=== PATIENT | female | born 1960 | race Caucasian/White ===

== ENCOUNTER 2019-05-22 19:11 | Emergency (ER) | payer MEDICAID, SELFPAY ==
[2019-05-22 19:18] VITALS: BP 139/82; PULSE 76; RESP 20; TEMP 37; O2SAT 97; BMI 19.3
[2019-05-22 19:20] VITALS: PULSE 78; RESP 20; O2SAT 97
--- NOTE | 2019-05-22 19:20 | PC.NURSE ---
Patient reports that today around 1500 she began to get chest pain while cleaning the house. Patient states the pain started in the center of her chest then to the left side of her chest. Patient reports that the pain comes and goes. Patient also states the pain is radiating to her left arm. Patient denies any other symptoms.
--- NOTE | 2019-05-22 19:23 | ECG_ITS ---
Measurements Intervals [place] Rate: 77 P: 62 WA: 129 QRS: 72 QRSD: 84 T: 23 QT: 372 QTc: [address] DEVIATION AND MODERATE T-WAVE ABNORMALITY, CONSIDER INFERIOR ISCHEMIA No previous ECG available for comparison Electronically Signed On 05-23-2019 10:51:17 CRUSHING FOREMAN by Carolina Carl M.D. [id number] f
--- NOTE | 2019-05-22 19:23 | XR_ITS ---
WS: [id number] Portable AP upright chest, 05/22/2019 Clinical Data: cp Comparison: PA and lateral chest, 01/15/2015. Findings: No nodules, masses or effusions are seen. The heart is normal. The pulmonary vascularity is not increased. No pneumonia or pneumothorax is seen. The patient has had right lung surgery with med iastinal clips adjacent to the right medial mediastinum. There is pleural reaction at the right lung base. The left lung is clear. No pneumonia or pneumothorax is present. There is an infusion catheter on the left entering the left internal jugular vein and ending in the superior vena cava. XR/XR chest 1V portable [id number] Impression: 1. Right thoracic surgery with scarring at the surface of the right diaphragm a nd a right pleural reaction. 2. Negative for acute cardiopulmonary disease.
--- NOTE | 2019-05-22 19:24 | ED_ITS ---
Entered by Gifty Bonilla, acting as scribe for HPI - Chest Pain General: Chief Complaint: Chest Pain Stated Complaint: CHEST PAINS Time Seen by Provider: 05/22/19 19:24 Source: patient and family Mode of arrival: wheelchair Limitations: no limitations History of Present Illness: HPI narrative: 59 yo Female presents to ED with complaint of chest pain. Pt states that this started at 1500 today when she was cleaning her house. Pt has lung cancer and lesions on her brain that she is being treated for, per her daughter. Pt's daughter states that the patient felt dizzy upon standing up. complaint: chest pain Onset (ago): hour(s) (4.5) Timing of current episode: episodic (every 5 minutes) and still present Prior episodes: Yes Onset: during exertion Pain location: substernal Pain radiation: left arm Relieving factors: nothing Exacerbating factors: nothing Associated symptoms: Reports nausea and syncope (dizziness); Deny abdominal pain, diaphoresis, dyspnea, fever(s), leg edema, palpitations or vomiting Treatment prior to arrival: aspirin (16:18) Review of Systems General: Reports: 10 or more systems reviewed and unremarkable except in HPI and below Const: Denies: fever, chills, body aches or diaphoresis Eyes: Denies: change in vision, blurry vision or blind spots ENMT: Denies: throat pain, painful swallowing, hoarseness or mouth pain Card: Reports: chest pain and syncope (dizziness); Denies: palpitations, irregular heart rhythm, edema, swelling of feet/ankles, shortness of breath on exertion or shortness of breath when lying down Resp: Denies: shortness of breath, productive cough, non-productive cough or pain on inspiration GI: Reports: nausea; Denies: abdominal pain, vomiting or vomiting blood : Denies: flank pain, difficulty urinating or painful urination Musc: Denies: neck pain, back pain, extremity pain or extremity swelling Skin/Breast: Reports: redness (to cheeks); Denies: rash or itching Neuro: Denies: headache, numbness in extremities or weakness in extremities Endo: Denies: excessive urination, excessive thirst or tired all the time PFSH ED PFSH: Statuses (acute, chronic, etc) shown below reflect problem list status as previously entered and may not be historically accurate Social History Smoking and tobacco status: former smoker Physical Exam Const: COMMON NORMALS: no apparent distress, average body habitus, oriented x3, no limitations, healthy appearing, alert and well nourished HENMT: COMMON NORMALS: normocephalic, head/scalp atraumatic, hearing grossly normal bilaterally, external ears normal, EAC's normal, TM's normal bilaterally, external nose normal, nasal mucous membranes and turbinates normal, moist oral mucous membranes, oropharynx normal, dentition normal and gingiva normal HEAD & SCALP: normocephalic and atraumatic NOSE: external nose normal and nasal mucous membranes and turbinates normal EXTERNAL EAR: Yes external ears normal EXTERNAL AUDITORY CANAL: EAC's normal TYMPANIC MEMBRANE: TM's normal bilaterally Eye: COMMON NORMALS: PERRL, EOMs intact bilaterally, conjunctivae normal, no scleral icterus, no papilledema, normal visual wood by confrontation and fundi normal bilaterally CONJUNCTIVA: Yes conjunctivae normal PUPIL: Yes PERRL DIRECT OPHTHALMOSCOPY: Yes no papilledema and Yes fundi normal bilaterally Neck/C-Spine: COMMON NORMALS: full ROM, no lymphadenopathy, supple, no meningeal signs, no JVD, thyroid normal and no carotid bruits THYROID: thyroid normal Chest: COMMONS NORMALS: inspection of chest normal and palpation of chest normal Resp: COMMON NORMALS: normal respiratory effort, no retractions, no use of accessory muscles, clear to auscultation bilaterally and percussion normal AUSCULTATION: clear to auscultation bilaterally PERCUSSION: percussion normal Cardio: COMMON NORMALS: no JVD, regular rate, regular rhythm, S1 normal heart sound, S2 normal heart sound, no gallops, no clicks, no murmurs, no rub and peripheral pulses 2+ throughout RATE: regular rate RHYTHM: regular rhythm HEART SOUNDS: S1 normal and S2 normal PERIPHERAL PULSES: pulses 2+ throughout GI: COMMON NORMALS: normal to inspection, nondistended, normoactive bowel sounds, soft to palpation, non-tender, no hepatosplenomegaly, no masses and no bruits PALPATION: Yes soft and Yes no hepatosplenomegaly : COMMON NORMALS: Yes no CVA tenderness BLADDER/KIDNEY EXAM: Yes no CVA tenderness Back/Pelvis: COMMON NORMALS: no CVA tenderness Extremity: COMMON NORMALS: normal to inspection, full ROM, normal capillary refill, no joint enlargement, no clubbing, cyanosis or edema, no calf tenderness and no pedal edema Neuro: COMMON NORMALS: oriented x3 SENSORIUM/ORIENTATION: Yes alert MENINGEAL SIGNS: Yes no meningeal signs Skin: COMMON NORMALS: no rashes or lesions noted, no wounds, skin turgor normal, no jaundice, no petechiae and no mottling GENERAL SKIN EXAM: no rashes or lesions noted and turgor normal Course Vital Signs: Vital signs: Vital Signs Temperature 98.6 F 05/22/19 19:18 Pulse Rate 78 05/22/19 19:20 Respiratory Rate 20 H 05/22/19 19:20 Blood Pressure 139/82 05/22/19 19:18 Pulse Oximetry 97 05/22/19 19:20 MDM - Chest Pain Lab Data: Labs: Lab Results 05/22/19 05/22/19 05/22/19 Range/Units 19:23 19:23 19:23 WBC 11.0 H (4.0-10.0) 10^3/ uL RBC 3.75 L (4.1-5.3) 10^6/u L Hgb 11.5 (11.5-15.3) g/dL Hct 36.1 L (37.0-47.0) % MCV 96.3 (81-99) fL MCH 30.7 (28.0-34.0) pg MCHC 31.9 (30.0-36.0) g/dL RDW 15.1 (12.1-15.1) % Plt Count 352 (130-400) 10^3/c mm MPV 8.4 (7.4-10.4) fL Neut % (Auto) 84.2 % Lymph % (Auto) 10.9 % Ballard % (Auto) 3.6 % Eos % (Auto) 0.6 % Baso % (Auto) 0.4 % Neut # (Auto) 9.2 H (1.8-7.7) 10^3/u L Lymph # (Auto) 1.2 (0.8-4.8) 10^3/u L Ballard # (Auto) 0.4 (0.2-0.9) 10^3/u L Eos # (Auto) 0.1 (0.0-0.8) 10^3/u L Baso # (Auto) 0.0 (0.0-0.1) 10^3/u L Nucleated RBC % (a uto) 0 % Nucleated RBCs # 0.0 /100WBC PT 13.80 H (10.5-13.3) SECO NDS INR 1.03 (0.8-1.2) Sodium 140 (136-145) mmol/L Potassium 4.0 (3.5-5.1) mmol/L Chloride 101 (98-107) mmol/L Carbon Dioxide 26 (22-29) mmol/L Anion Gap 17.0 (5-19) BUN 11 (8-23) mg/dL Creatinine 0.8 (0.5-0.9) mg/dL GFR Calculation 73.2 L (90-130) mL/min Glucose 110 H (74-106) mg/dL Calcium 10.3 H (8.8-10.2) mg/Dl Total Bilirubin 0.2 (0.15-1.2) mg/dL AST 17 (0-32) U/L ALT 7 (0-33) U/L Alkaline Phosphata se 97 (35-105) IU/L Troponin T Baselin e (0-10) ng/mL Total Protein 7.9 (6.6-8.7) g/dL Albumin 4.5 (3.5-5.2) g/dL Globulin 3.4 (1.3-4.6) g/dL 05/22/19 Range/Units 19:23 WBC (4.0-10.0) 10^3/ uL RBC (4.1-5.3) 10^6/u L Hgb (11.5-15.3) g/dL Hct (37.0-47.0) % MCV (81-99) fL MCH (28.0-34.0) pg MCHC (30.0-36.0) g/dL RDW (12.1-15.1) % Plt Count (130-400) 10^3/c mm MPV (7.4-10.4) fL Neut % (Auto) % Lymph % (Auto) % Ballard % (Auto) % Eos % (Auto) % Baso % (Auto) % Neut # (Auto) (1.8-7.7) 10^3/u L Lymph # (Auto) (0.8-4.8) 10^3/u L Ballard # (Auto) (0.2-0.9) 10^3/u L Eos # (Auto) (0.0-0.8) 10^3/u L Baso # (Auto) (0.0-0.1) 10^3/u L Nucleated RBC % (a uto) % Nucleated RBCs # /100WBC PT (10.5-13.3) SECO NDS INR (0.8-1.2) Sodium (136-145) mmol/L Potassium (3.5-5.1) mmol/L Chloride (98-107) mmol/L Carbon Dioxide (22-29) mmol/L Anion Gap (5-19) BUN (8-23) mg/dL Creatinine (0.5-0.9) mg/dL GFR Calculation (90-130) mL/min Glucose (74-106) mg/dL Calcium (8.8-10.2) mg/Dl Total Bilirubin (0.15-1.2) mg/dL AST (0-32) U/L ALT (0-33) U/L Alkaline Phosphata se (35-105) IU/L Troponin T Baselin e 7 (0-10) ng/mL Total Protein (6.6-8.7) g/dL Albumin (3.5-5.2) g/dL Globulin (1.3-4.6) g/dL EKG Data^: EKG 1: Attestation: I personally reviewed and interpreted this EKG as follows: EKG interpretation date: 05/22/19 EKG interpretation time: 19:24 Prior EKG tracings: available for review Ischemic changes: non-specific ST-T wave changes (EKG dated 04/17/[address] depression in lead III but no ST depression noted and aVF.) Interpretation: Normal sinus rhythm, rate 77, normal axis deviation, ST depression noted in lead III, aVF EKG 2: Attestation: I personally reviewed and interpreted this EKG as follows: EKG interpretation date: 05/22/19 EKG interpretation time: 19:58 Prior EKG tracings: available for review Interpretation: Patient complained of chest pain, EKG done at that time. EKG shows normal sinus rhythm, normal axis deviation, rate 68, no ST/T wave changes noted. ST depression noted in lead III and to a lesser extent aVF is no longer noted. Discharge Plan Discharge Prescriptions: No Action B Complex PO DAILY RF: 0 ascorbic acid (vitamin C) [Vitamin C] 1,000 mg Tablet 500 mg PO DAILY RF: 0 levetiracetam [Keppra] 500 mg Tablet 500 mg PO TID RF: 0 sertraline [Zoloft] 100 mg Tablet 100 mg PO DAILY RF: 0 aspirin 81 mg Tablet,Delayed Release (Dr/Ec) 81 mg PO QAM RF: 0 acetaminophen [Tylenol Extra Strength] 500 mg Tablet 500 mg PO TID PRN (Reason: Pain) RF: 0 levothyroxine 50 mcg Tablet 50 mcg PO DAILY RF: 0 mirtazapine 15 mg Tablet 15 mg PO BEDTIME RF: 0 Probiotic PO DAILY RF: 0 Tumeric PO DAILY RF: 0 Vitamin D3 RF: 0 melatonin PO BEDTIME RF: 0 potassium chloride PO DAILY RF: 0 Coding Level of Care Code ED Sewage Disposal Engineer for Chg Fwd Exam Problem Focused The documentation recorded by the Chad bull Carmen, accurately reflects the service I personally performed and the decisions made by William alamo Daud
[2019-05-22 19:35] LABS: Basophils % 0.4 %; Eosinophils # 0.1 10^3/uL (0.0-0.8); Eosinophils % 0.6 %; Hematocrit 36.1 % (37.0-47.0); Hemoglobin 11.5 g/dL (11.5-15.3); Lymphocytes # 1.2 10^3/uL (0.8-4.8); Lymphocytes % 10.9 %; Mean Corpuscular HGB Conc 31.9 g/dL (30.0-36.0); Mean Corpuscular Hemoglobin 30.7 pg (28.0-34.0); Mean Corpuscular Volume 96.3 fL (81-99); Mean Platelet Volume 8.4 fL (7.4-10.4); Monocytes # 0.4 10^3/uL (0.2-0.9); Monocytes % 3.6 %; Neutrophils # 9.2 10^3/uL (1.8-7.7); Neutrophils % 84.2 %; Nucleated Red Blood Cells % 0 %; Platelet Count 352 10^3/cmm (130-400); Red Blood Count 3.75 10^6/uL (4.1-5.3); Red Cell Distribution Width 15.1 % (12.1-15.1)
[2019-05-22 19:45] LABS: INR 1.03 (0.8-1.2)
[2019-05-22 19:52] LABS: Alanine Aminotransferase 7 U/L (0-33); Albumin Level 4.5 g/dL (3.5-5.2); Alkaline Phosphatase 97 IU/L (35-105); Aspartate Amino Transferase 17 U/L (0-32); Blood Urea Nitrogen 11 mg/dL (8-23); Calcium 10.3 mg/Dl (8.8-10.2); Carbon Dioxide 26 mmol/L (22-29); Chloride 101 mmol/L (98-107); Globulin 3.4 g/dL (1.3-4.6); Glomerular Filtration Rate 73.2 mL/min (90-130); Glucose 110 mg/dL (74-106); Sodium 140 mmol/L (136-145); Total Bilirubin 0.2 mg/dL (0.15-1.2); Total Protein 7.9 g/dL (6.6-8.7)
[2019-05-22 19:54] LABS: Troponin(5th) Baseline 7 ng/mL (0-10)
[2019-05-22] MEDS: nitroglycerin 0.4 mg sublingual Tablet SUBLINGUAL (19:56)
[2019-05-22 20:09] LABS: D Dimer 1.72 ug/mIFEU (0-0.59)
[2019-05-22 20:28] VITALS: BP 125/64; RESP 15; O2SAT 98
[2019-05-22 21:14] VITALS: BP 98/62; PULSE 75; RESP 18; O2SAT 99
--- NOTE | 2019-05-22 21:23 | ECG_ITS ---
Measurements Intervals [place] Rate: 71 P: 30 SD: 128 QRS: 71 QRSD: 86 T: 28 QT: 410 QTc: 447 SINUS RHYTHM MODERATE T-WAVE ABNORMALITY, CONSIDER ANTERIOR ISCHEMIA [-0.1+ mV T WAVE IN V3 V3/V4] No previous ECG available for comparison Electronically Signed On 05-23-2019 11:01:05 TOOL DESIGNER by Carolina Carl M.D. [id number] f
[2019-05-22 21:47] LABS: Troponin 5 2HR 8.56 ng/mL (0-10); Troponin 5 2HR Delta 1.56 ABS# (0-10)
[2019-05-22 22:12] VITALS: BP 102/59; PULSE 72; RESP 19; O2SAT 98
== END 2019-05-22 22:16 | disposition home or self-care (01) ==
PROVIDERS: Emergency Medicine; Emergency Provider Emergency Medicine; Family Provider Nurse Practitioner
DX: Z79.82 Long term (current) use of aspirin (principal); Z87.891 Personal history of nicotine dependence
CPT/HCPCS: 71045; 80053; 84484; 85025; 85378; 85610; 93005; 99282

== ENCOUNTER 2019-11-30 20:28 | Emergency (ER) | payer MEDICAID, SELFPAY ==
[2019-11-30 20:39] VITALS: BP 136/84; PULSE 95; RESP 14; TEMP 37.6; O2SAT 97; BMI 20.5
[2019-11-30 21:02] VITALS: BP 128/85; PULSE 86; RESP 20; TEMP 36.6; O2SAT 96
--- NOTE | 2019-11-30 21:27 | CTR_ITS ---
PROCEDURE INFORMATION: Exam: CT Head Without Contrast Exam date and time: 11/30/2019 9:32 PM Age: 59 years old Clinical indication: Condition or disease; Convulsions or seizures; Unspecified; Patient HX: HX of lung CA w brain mets - witnessed seizure; Additional info: Mauricio TECHNIQUE: Imaging protocol: Computed tomography of the head without contrast. Radiation optimization: All CT scans at this facility use at least one of these dose optimization techniques: automated exposure control; mA and/or kV adjustment per patient size (includes targeted exams where dose is matched to clinical indication); or iterative reconstruction. COMPARISON: No relevant prior studies available. RADIATION DOSE METRICS: Total DLP (mGy-cm): 726.49 FINDINGS: Brain: 9-10 mm rounded focus of low attenuation in the lateral right frontal region, at the galicia/white matter interface. Given the patient's history, this likely represents a metastatic lesion. Small 2-3 mm focus of high attenuation associated with this lesion, possibly representing small area of associated hemorrhage or calcification. Several other smaller and more subtle areas of low attenuation in the periventricular white matter bilaterally. These could well represent additional metastatic foci, versus chronic changes associated with microvascular disease. A similar 7 mm focus is seen in the medial right upper cerebellar hemisphere. MRI would be more sensitive/specific for detecting/evaluating for metastatic disease, as clinically directed. No significant mass effect or midline shift. No definite acute infarct by CT. MRI could be more sensitive/specific for detection, as clinically directed. Ventricles: Ventricle size is normal for age. Bones/joints: No definite acute skull fracture. Sinuses: Included paranasal sinuses are essentially clear. Mastoid air cells: No significant acute finding. CT/CT head wo con* [id number] IMPRESSION: 1. Areas of low attenuation likely representing metastatic disease to the brain, please see above details/discussion. One area has a small focus calcification or hemorrhage associated with it. 2. No significant mass effect or midline shift. 3. No definite acute infarct by CT, see above. 4. Other findings discussed above. Radiation Dose CTDIVOL = (mGy): DLP = 726.49 (mGy-cm)
--- NOTE | 2019-11-30 21:27 | XRR_ITS ---
PROCEDURE INFORMATION: Exam: XR Chest, 1 View Exam date and time: 11/30/2019 9:55 PM Age: 59 years old Clinical indication: Other: Seizure; Prior surgery; Surgery type: Lung, port; Patient HX: HX of lung CA TECHNIQUE: Imaging protocol: XR of the chest Views: 1 view. COMPARISON: CR XR chest 1V portable [id number] 05/22/2019 7:32 PM FINDINGS: Lungs: Lungs are well aerated without a focal area of consolidation. Pleural space: Subpulmonic effusion versus pleural thickening on the right. Heart/Mediastinum: Extensive operative changes in the right paratracheal and right perihilar region Vasculature: Chest port/Mediport has been placed via the left jugular approach with the tip in the superior vena cava. Bones/joints: Unremarkable. XR/XR chest 1V portable [id number] IMPRESSION: Lungs are well aerated without a focal area of consolidation. Operative changes right hilar region.
--- NOTE | 2019-11-30 21:28 | ECG_ITS ---
[facility] Test Date: 2019-11-30 Pat Name: Charmaine Pascual Department: Room: Gender: Female Operations Forester: : 1960 Requested By: Miguel Angel Dai Order Number: [id number] MD: Carolina Carl M.D. Measurements Intervals [place] Rate: 86 P: 116 WV: 145 QRS: 111 QRSD: 81 T: 171 QT: 325 QTc: 389 Interpretive Statements SINUS RHYTHM ARM LEADS REVERSED [INVERTED P AND QRS IN I] Compared to ECG 05/22/2019 21:30:55 T-wave abnormality no longer present Possible ischemia no longer present Electronically Signed On 12-01-2019 21:28:53 CDT by Carolina Carl M.D. [id number]
[2019-11-30 21:56] LABS: Basophils # 0.1 10^3/uL (0.0-0.1); Basophils % 0.3 %; Eosinophils # 0.2 10^3/uL (0.0-0.8); Hematocrit 36.1 % (37.0-47.0); Hemoglobin 11.9 g/dL (11.5-15.3); Lymphocytes # 1.4 10^3/uL (0.8-4.8); Lymphocytes % 9.6 %; Mean Corpuscular Hemoglobin 33.3 pg (28.0-34.0); Mean Corpuscular Volume 101.1 fL (81-99); Mean Platelet Volume 8.5 fL (7.4-10.4); Monocytes # 0.7 10^3/uL (0.2-0.9); Monocytes % 4.5 %; Neutrophils # 12.17 10^3/uL (1.8-7.7); Neutrophils % 84.3 %; Nucleated Red Blood Cells % 0 %; Platelet Count 282 10^3/cmm (130-400); Red Blood Count 3.57 10^6/uL (4.1-5.3); Red Cell Distribution Width 12.4 % (12.1-15.1); White Blood Count 14.5 10^3/uL (4.0-10.0)
[2019-11-30 21:59] LABS: Add Urine Microscopic? NO
[2019-11-30 22:01] LABS: Bilirubin Urine Neg (NEGATIVE); Blood Urine Neg (Negative); Glucose Urine UA Norm (Normal); Ketones Urine Negative (Negative); Leukocyte Esterase Urine Negative (Negative); Nitrate Urine Negative (Negative); Protein Urine Neg (Negative); Urine Appearance Clear (CLEAR); Urine Color Yellow (Yellow); Urobilinogen Urine Norm (Negative); pH Urine 6 (5-7)
[2019-11-30 22:10] LABS: Amphetamines Screen Urine Negative (Negative); Barbiturates Screen Urine Negative (Negative); Benzodiazepines Screen Urine Negative (Negative); Cocaine Screen Urine Negative (Negative); Opiate Screen Urine Negative (Negative); PCP Screen Urine Negative (Negative); THC Screen Urine Negative (Negative)
[2019-11-30 22:20] LABS: Troponin(5th) Baseline 44 ng/L (0-10)
[2019-11-30 22:30] LABS: Alanine Aminotransferase 10 U/L (0-33); Albumin Level 4.6 g/dL (3.5-5.2); Alkaline Phosphatase 100 IU/L (35-105); Anion Gap 15.9 (5-19); Aspartate Amino Transferase 19 U/L (0-32); Blood Urea Nitrogen 12 mg/dL (8-23); Calcium 9.6 mg/dL (8.5-10.5); Carbon Dioxide 26 mmol/L (22-29); Chloride 99 mmol/L (98-107); Creatine Phosphokinase 56 U/L (26-192); Globulin 2.3 g/dL (1.3-4.6); Glomerular Filtration Rate 63.9 mL/min (90-130); Glucose 82 mg/dL (65-115); Magnesium 1.7 mg/dL (1.7-2.3); Osmolality Calculated 279 mOsm/kg (285-295); Potassium 3.9 mmol/L (3.5-5.1); Salicylate 0.4 mg/dL (3-10); Sodium 137 mmol/L (136-145); Thyroid Stimulating Hormone 3.08 uIU/mL (0.27-4.20); Total Bilirubin 0.2 mg/dL (0.15-1.2); Total Protein 6.9 g/dL (6.6-8.7)
[2019-11-30 22:31] LABS: Acetaminophen < 5.0 ug/mL (10-30); Alcohol Level < 10 mg/dL (0-10)
[2019-11-30 22:48] VITALS: BP 114/78; PULSE 88; RESP 20; O2SAT 98
--- NOTE | 2019-11-30 23:12 | ED_ITS ---
HPI - Seizure General: Chief Complaint: Seizure Stated Complaint: post seizure Time Seen by Provider: 11/30/19 20:53 History of Present Illness: HPI Narrative: 59-year-old female with a history of metastatic lung cancer, and lesions on her brain . She presents after [place]. It last about 1 minute or so. She was not responsive, and exhibited tonic-clonic movements. She recovered on the river, and came here for evaluation. She is back to her baseline essentially. She has some sun exposure from the river. He says that she is cold . She denies being ill in any other way prior. MD complaint: seizure Onset (ago): hour(s) Description of Episode: loss of consciousness and tonic-clonic movement Witnessed: Yes - by Bystander Trauma: No Seizure History: Yes (1 seizure last fall, on ) Place: Outdoors Possible Precipitating Event: none Associated symptoms: Reports rash; Deny chest pain, confusion, fever(s) or short of breath Treatments prior to arrival: none Review of Systems Const: Denies: fever(s) Eyes: Denies: change in vision or blurry vision ENMT: Denies: swelling of lips/tongue or bleeding gums Card: Denies: chest pain, palpitations, irregular heart rhythm, dyspnea on exertion or orthopnea Resp: Denies: dyspnea, productive cough, non-productive cough or wheezing GI: Denies: abdominal pain, nausea or vomiting : Denies: dysuria or hematuria Musc: Denies: neck pain or back pain Skin/Breast: Reports: rash; Denies: pruritus or erythema Neuro: Denies: confusion Psych: Denies: anxiety PFS ED PFSH: Social History Smoking and tobacco status: former smoker Physical Exam Const: GENERAL APPEARANCE: well developed ORIENTATION/CONSCIOUSNESS: Yes oriented to person, Yes oriented to place and Yes oriented to time HENMT: COMMON NORMALS: normocephalic, external ears normal and Normal external nose present HEAD & SCALP: normocephalic FACE & SINUS: normal facial exam NOSE: Normal external nose present and No nasal discharge present EXTERNAL EAR: Yes external ears normal Eye: COMMON NORMALS: Equal, round and reactive pupils present, EOMs intact bilaterally and conjunctivae normal EYELID: eyelids normal CONJUNCTIVA: Yes conjunctivae normal PUPIL: Yes Equal, round and reactive pupils present Neck/C-Spine: GENERAL: No tracheal deviation CERVICAL SPINE: Yes normal cervical lordosis and No Cervical spine tenderness Chest: COMMONS NORMALS: normal inspection of the chest CHEST: No tenderness Resp: COMMON NORMALS: clear to auscultation bilaterally EFFORT & INSPECTION: No tachypneic, No respiratory distress, No retractions, No uses accessory muscles and No tracheal deviation AUSCULTATION: clear to auscultation bilaterally, no rhonchi, no wheezes and lung sounds not diminished Cardio: COMMON NORMALS: regular rate and regular rhythm RATE: regular rate RHYTHM: regular rhythm HEART SOUNDS: no murmurs PERIPHERAL PULSES: radial pulses present GI: INSPECTION: No abdominal distension AUSCULTATION: No Hyperactive bowel sounds present and No Hypoactive bowel sounds present PALPATION: No Guarding due to palpation present (GI) and No Rigid due to palpation PERCUSSION: no dullness to percussion and no tympanic to percussion Neuro: SENSORIUM/ORIENTATION: Yes oriented to person, Yes oriented to place an d Yes oriented to time Psych: COMMON NORMALS: mental status grossly normal Skin: GENERAL SKIN EXAM: other (Sun exposure rash) Course Vital Signs: Vital signs: Vital Signs Temperature 97.8 F 11/30/19 21:02 Pulse Rate 82 11/30/19 23:40 Respiratory Rate 20 H 11/30/19 23:40 Blood Pressure 127/62 11/30/19 23:40 Pulse Oximetry 95 11/30/19 23:40 MDM - Seizure MDM Narrative: Medical decision making narrative: 59-year-old female with a history of metastatic lung cancer to the brain. She had a seizure this evening. She has a focal area of hemorrhage in her right temporal lobe associated with a lesion. She also has a urinary tract infection that is significant. She is received fluid, Rocephin. Her white blood cell count is 14.5 with a left shift. Her other laboratory is benign. We spoke with neurosurgery at [facility] in [place], they agreed to take in transfer. Beds are not available, so she will go to the ER. Dr. Tenorio has accepted. She is also been given IV Keppra as well as 10 mg dexamethasone as recommended by neurosurgery Lab Data: Labs: Lab Results 07/26/20 07/26/20 07/26/20 Range/Units 21:17 21:17 21:38 WBC 14.5 H (4.0-10.0) 10^3/ uL RBC 3.57 L (4.1-5.3) 10^6/u L Hgb 11.9 (11.5-15.3) g/dL Hct 36.1 L (37.0-47.0) % MCV 101.1 H (81-99) fL MCH 33.3 (28.0-34.0) pg MCHC 33.0 (30.0-36.0) g/dL RDW 12.4 (12.1-15.1) % Plt Count 282 (130-400) 10^3/c mm MPV 8.5 (7.4-10.4) fL Neut % (Auto) 84.3 % Lymph % (Auto) 9.6 % Mcpherson % (Auto) 4.5 % Eos % (Auto) 1.0 % Baso % (Auto) 0.3 % Neut # (Auto) 12.17 H (1.8-7.7) 10^3/u L Lymph # (Auto) 1.4 (0.8-4.8) 10^3/u L Mcpherson # (Auto) 0.7 (0.2-0.9) 10^3/u L Eos # (Auto) 0.2 (0.0-0.8) 10^3/u L Baso # (Auto) 0.1 (0.0-0.1) 10^3/u L Nucleated RBC % (a uto) 0 % Nucleated RBCs # 0.0 /100WBC Sodium (136-145) mmol/L Potassium (3.5-5.1) mmol/L Chloride (98-107) mmol/L Carbon Dioxide (22-29) mmol/L Anion Gap (5-19) BUN (8-23) mg/dL Creatinine (0.5-0.9) mg/dL GFR Calculation (90-130) mL/min Glucose (65-115) mg/dL Calculated Osmolal ity (285-295) mOsm/k g Calcium (8.5-10.5) mg/dL Phosphorus (2.5-4.5) mg/dL Magnesium (1.7-2.3) mg/dL Total Bilirubin (0.15-1.2) mg/dL AST (0-32) U/L ALT (0-33) U/L Alkaline Phosphata se (35-105) IU/L Creatine Kinase (26-192) U/L Troponin T Baselin e (0-10) ng/L Total Protein (6.6-8.7) g/dL Albumin (3.5-5.2) g/dL Globulin (1.3-4.6) g/dL TSH (0.27-4.20) uIU/ mL Urine Color Yellow (Yellow) Urine Appearance Clear (CLEAR) Urine pH 6 (5-7) Ur Specific Gravit y 1.010 (1.005-1.030) Urine Protein Neg (Negative) Urine Glucose (UA) Norm (Normal) Urine Ketones Negative (Negative) Urine Blood Neg (Negative) Urine Nitrate Negative (Negative) Urine Bilirubin Neg (NEGATIVE) Urine Urobilinogen Norm (Negative) mg/dL Ur Leukocyte Awilda ase Negative (Negative) Salicylates (3-10) mg/dL Urine Opiates Scre en Negative (Negative) ng/mL Acetaminophen (10-30) ug/mL Ur Barbiturates Sc reen Negative (Negative) ng/mL Ur Phencyclidine S crn Negative (Negative) ng/mL Ur Amphetamines Sc reen Negative (Negative) ng/mL U Benzodiazepines Scrn Negative (Negative) ng/mL Urine Cocaine Scre en Negative (Negative) ng/mL U Marijuana (THC) Screen Negative (Negative) ng/mL Ethyl Alcohol (0-10) mg/dL 11/30/19 11/30/19 Range/Units 21:38 21:38 WBC (4.0-10.0) 10^3/ uL RBC (4.1-5.3) 10^6/u L Hgb (11.5-15.3) g/dL Hct (37.0-47.0) % MCV (81-99) fL MCH (28.0-34.0) pg MCHC (30.0-36.0) g/dL RDW (12.1-15.1) % Plt Count (130-400) 10^3/c mm MPV (7.4-10.4) fL Neut % (Auto) % Lymph % (Auto) % Mcpherson % (Auto) % Eos % (Auto) % Baso % (Auto) % Neut # (Auto) (1.8-7.7) 10^3/u L Lymph # (Auto) (0.8-4.8) 10^3/u L Mcpherson # (Auto) (0.2-0.9) 10^3/u L Eos # (Auto) (0.0-0.8) 10^3/u L Baso # (Auto) (0.0-0.1) 10^3/u L Nucleated RBC % (a uto) % Nucleated RBCs # /100WBC Sodium 137 (136-145) mmol/L Potassium 3.9 (3.5-5.1) mmol/L Chloride 99 (98-107) mmol/L Carbon Dioxide 26 (22-29) mmol/L Anion Gap 15.9 (5-19) BUN 12 (8-23) mg/dL Creatinine 0.9 (0.5-0.9) mg/dL GFR Calculation 63.9 L (90-130) mL/min Glucose 82 (65-115) mg/dL Calculated Osmolal ity 279 L (285-295) mOsm/k g Calcium 9.6 (8.5-10.5) mg/dL Phosphorus 3.0 (2.5-4.5) mg/dL Magnesium 1.7 (1.7-2.3) mg/dL Total Bilirubin 0.2 (0.15-1.2) mg/dL AST 19 (0-32) U/L ALT 10 (0-33) U/L Alkaline Phosphata se 100 (35-105) IU/L Creatine Kinase 56 (26-192) U/L Troponin T Baselin e 44 H (0-10) ng/L Total Protein 6.9 (6.6-8.7) g/dL Albumin 4.6 (3.5-5.2) g/dL Globulin 2.3 (1.3-4.6) g/dL TSH 3.08 (0.27-4.20) uIU/ mL Urine Color (Yellow) Urine Appearance (CLEAR) Urine pH (5-7) Ur Specific Gravit y (1.005-1.030) Urine Protein (Negative) Urine Glucose (UA) (Normal) Urine Ketones (Negative) Urine Blood (Negative) Urine Nitrate (Negative) Urine Bilirubin (NEGATIVE) Urine Urobilinogen (Negative) mg/dL Ur Leukocyte Awilda ase (Negative) Salicylates 0.4 L (3-10) mg/dL Urine Opiates Scre en (Negative) ng/mL Acetaminophen < 5.0 L (10-30) ug/mL Ur Barbiturates Sc reen (Negative) ng/mL Ur Phencyclidine S crn (Negative) ng/mL Ur Amphetamines Sc reen (Negative) ng/mL U Benzodiazepines Scrn (Negative) ng/mL Urine Cocaine Scre en (Negative) ng/mL U Marijuana (THC) Screen (Negative) ng/mL Ethyl Alcohol < 10 (0-10) mg/dL Discharge Plan Discharge Condition: Good Prescriptions: No Action Vitamin C 1,000 mg Tablet 500 mg PO DAILY RF: 0 Keppra 500 mg Tablet 500 mg PO TID RF: 0 Zoloft 100 mg Tablet 100 mg PO DAILY RF: 0 potassium chloride 10 mEq Tablet Extended Release 10 meq PO DAILY RF: 0 aspirin 81 mg Tablet,Delayed Release (Dr/Ec) 81 mg PO QAM RF: 0 Tylenol Extra Strength 500 mg Tablet 500 mg PO TID PRN (Reason: Pain) RF: 0 levothyroxine 50 mcg Tablet 50 mcg PO DAILY RF: 0 mirtazapine 15 mg Tablet 15 mg PO BEDTIME RF: 0 ergocalciferol (vitamin D2) 50,000 unit Capsule 50,000 unit PO Q7D RF: 0 vitamin B complex-folic acid [B Complex 100] 0.4 mg Tablet 1 tab PO DAILY RF: 0 Probiotic 3 billion cell Capsule 3,000 mmu cells PO DAILY RF: 0 turmeric 400 mg Capsule 400 mg PO DAILY RF: 0 melatonin 10 mg PO BEDTIME RF: 0 Coding Level of Care Code ED Care Aide for Chg Fwd Exam Comprehensive
[2019-11-30 23:28] VITALS: RESP 18
[2019-11-30] MEDS: fentaNYL 50 mcg/mL INJ 2mL 25 MCG IVP (23:28)
[2019-11-30] MEDS: sodium chloride 0.9% 1,000 ML 999 ML IV (23:30)
[2019-11-30] MEDS: dexamethasone 10 mg/mL INJ IVP (23:34)
[2019-11-30] MEDS: cefTRIAXone 1,000 MG in sodium chloride 0.9% (plus) 50 ML 100 MG IV (23:35)
[2019-11-30 23:40] VITALS: BP 127/62; PULSE 82; RESP 20; O2SAT 95
[2019-12-01] VITALS (7 sets, daily range): BP systolic 91–107; BP diastolic 55–67; PULSE 68–88; RESP 16–20; TEMP 36.7–36.9; O2SAT 94–98
[2019-12-01] MEDS: fentaNYL 50 mcg/mL INJ 2mL IVP (02:49)
[2019-12-01] MEDS: lidocaine 2% viscous 15 mL UDC TOPICAL (02:57)
[2019-12-01] MEDS: sodium chloride 0.9% 1,000 ML 200 ML IV (02:57)
== END 2019-12-01 07:24 | disposition other institution (70) ==
PROVIDERS: Emergency Provider Emergency Medicine; PCP Nurse Practitioner
DX: R56.9 Unspecified convulsions (principal); Z79.82 Long term (current) use of aspirin; Z87.891 Personal history of nicotine dependence
CPT/HCPCS: 12345; 70450; 71045; 80053; 80306; 80307; 81003; 82550; 83735; 84100; 84443; 84484; 85025; 93005; 96365; 96366; 96367; 96375; 96376; 99284; 99285; J0696; J1100; J1953; J3010; J7030

== ENCOUNTER 2020-04-09 08:14 | Emergency (ER) | payer MEDICAID, SELFPAY ==
[2020-04-09] VITALS (9 sets, daily range): BP systolic 118–141; BP diastolic 69–93; PULSE 57–70; RESP 17–20; TEMP 36.5; O2SAT 95–98; BMI 21.8
--- NOTE | 2020-04-09 08:17 | ECG_ITS ---
[facility] Test Date: 2020-04-09 Pat Name: Charmiane Pascual Department: Room: Gender: Female Disaster Recovery Coordinator: : 1960 Requested By: Jacques Flores Order Number: [id number] Zoya MD: Chun Walker M.D. Measurements Intervals [place] Rate: 60 P: 11 OK: 148 QRS: 63 QRSD: 85 T: 34 QT: 415 QTc: 417 Interpretive Statements SINUS RHYTHM Compared to ECG 11/30/2019 22:32:31 No significant changes Electronically Signed On 04-09-2020 19:14:13 VIDEO GAMES STORYWRITER by Chun Walker M.D. [id number] f
--- NOTE | 2020-04-09 08:17 | XR_ITS ---
WS: [id number] Portable AP upright chest, 04/09/2020 Clinical Data: chest pain Comparison: Portable chest, 11/30/2019. Findings: There is minimal right pleural reaction. The patient's had surgery in the right hilum and a djacent to the distal right trachea with numerous clips. No nodules or masses are seen. There is a li near left upper lobe scar. The heart is normal. No pneumonia or pneumothorax is seen. The aortic arch shows calcification. There is a left internal jugular venous catheter unchanged in position. XR/XR chest 1V portable [id number] Impression: 1. Postoperative changes in the right hilum and right costophrenic angle. 2. Atherosclerosis.
--- NOTE | 2020-04-09 08:24 | W.ED.CHESTPA ---
HPI - Chest Pain General: Chief Complaint: Chest Pain Stated Complaint: cp Time Seen by Provider: 04/09/20 08:17 History of Present Illness: HPI narrative: 60 yo female with hx of lung CA with brain mets. Presents with complaint of chest pain with pain is somewhat positional worse when she takes a deep breath or sits up. She has not had any hemoptysis he has not had any increased cough or shortness of breath is not reproducible with palpation does not radiate does not cause any diaphoresis. It has been worsening lately along with fatigue. She has not noticed any triggers or relieving factors other than with time it will resolve spontaneously. MD complaint: chest pain Pertinent past history: other (Lung CA with brain metastasis) Onset (ago): week(s) Timing of current episode: episodic Prior episodes: Yes Onset: during rest Pain location: substernal Pain radiation: none Severity: mild Quality: aching and heaviness Relieving factors: nothing Exacerbating factors: nothing Context: other (History of lung CA) Associated symptoms: Reports dyspnea (Chronic) and nausea; Deny abdominal pain, diaphoresis, fever(s), leg edema, palpitations, sense of impending doom, syncope or vomiting Treatment prior to arrival: none Review of Systems Const: Denies: fever(s) or diaphoresis ENMT: Denies: throat pain, ear or mastoid pain, nasal discharge or nasal congestion Card: Denies: palpitations or syncope Resp: Reports: dyspnea (Chronic) GI: Reports: nausea; Denies: abdominal pain or vomiting : Denies: flank pain, difficulty voiding, dysuria, urinary frequency or urinary urgency Skin/Breast: Denies: rash or pruritus PFS ED PFSH: Social History Smoking and tobacco status: former smoker Physical Exam Const: COMMON NORMALS: no acute distress GENERAL APPEARANCE: cooperative and comfortable ORIENTATION/CONSCIOUSNESS: Yes awake, Yes oriented to person, Yes oriented to place and Yes oriented to time HENMT: COMMON NORMALS: normocephalic, atraumatic and hearing grossly normal bilaterally HEAD & SCALP: normocephalic and atraumatic Eye: COMMON NORMALS: Equal, round and reactive pupils present, EOMs intact bilaterally, conjunctivae normal and no scleral icterus CONJUNCTIVA: Yes conjunctivae normal PUPIL: Yes Equal, round and reactive pupils present Neck/C-Spine: COMMON NORMALS: full ROM, no lymphadenopathy, supple and no JVD Lymph: LYMPHATIC: no lymphadenopathy noted and no lymphedema noted Resp: COMMON NORMALS: normal respiratory effort, No retractions, No use of accessory muscles and clear to auscultation bilaterally AUSCULTATION: clear to auscultation bilaterally Cardio: COMMON NORMALS: no JVD, regular rate, regular rhythm and No murmurs present (Cardio) RATE: regular rate RHYTHM: regular rhythm GI: COMMON NORMALS: Soft to palpation and No hepatosplenomegaly present AUSCULTATION: Yes normoactive bowel sounds PALPATION: Yes Soft to palpation, No Tenderness to palpation present (GI), No Guarding due to palpation present (GI) and Yes No hepatosplenomegaly present Extremity: COMMON NORMALS: normal to inspection, capillary refill normal, no clubbing, cyanosis or edema, no calf tenderness and no pedal edema Neuro: SENSORIUM/ORIENTATION: Yes oriented to person, Yes oriented to place and Yes oriented to time Skin: COMMON NORMALS: no rashes or lesions noted GENERAL SKIN EXAM: no rashes or lesions noted Course Vital Signs: Vital signs: Vital Signs Temperature 97.7 F 04/09/20 08:25 Pulse Rate 70 04/09/20 12:17 Respiratory Rate 20 H 04/09/20 12:17 Blood Pressure 118/69 04/09/20 12:17 Pulse Oximetry 96 04/09/20 12:17 MDM - Chest Pain MDM Narrative: Medical decision making narrative: Findings the patient she has no further chest pain or pressure. Suspect some of this may be GI related she tells me that in her previous scans and told her the cancer has been cleared from from any active lesions in her chest. She has no left-sided pneumothorax no pneumonia. We will go ahead and discharge her home with pain medication to use as needed has worsening or change symptoms return. Lab Data: Attestation: I reviewed the patient's lab results. Labs: Lab Results 04/09/20 04/09/20 04/09/20 Range/Units 08:45 08:45 08:45 WBC 5.1 (4.0-10.0) 10^3/ uL RBC 3.73 L (4.1-5.3) 10^6/u L Hgb 11.5 (11.5-15.3) g/dL Hct 35.4 L (37.0-47.0) % MCV 94.9 (81-99) fL MCH 30.8 (28.0-34.0) pg MCHC 32.5 (30.0-36.0) g/dL RDW 13.6 (12.1-15.1) % Plt Count 113 L (130-400) 10^3/c mm MPV 9.1 (7.4-10.4) fL Neut % (Auto) 66.7 % Lymph % (Auto) 26.7 % Mcintosh % (Auto) 3.4 % Eos % (Auto) 2.4 % Baso % (Auto) 0.6 % Neut # (Auto) 3.37 (1.8-7.7) 10^3/u L Lymph # (Auto) 1.4 (0.8-4.8) 10^3/u L Mcintosh # (Auto) 0.2 (0.2-0.9) 10^3/u L Eos # (Auto) 0.1 (0.0-0.8) 10^3/u L Baso # (Auto) 0.0 (0.0-0.1) 10^3/u L Nucleated RBC % (a uto) 0 % Nucleated RBCs # 0.0 /100WBC Sodium 141 (136-145) mmol/L Potassium 4.2 (3.5-5.1) mmol/L Chloride 102 (98-107) mmol/L Carbon Dioxide 29 (22-29) mmol/L Anion Gap 14.2 (5-19) BUN 11 (8-23) mg/dL Creatinine 1.0 H (0.5-0.9) mg/dL GFR Calculation 56.4 L (90-130) mL/min Glucose 93 (65-115) mg/dL Calculated Osmolal ity 291 (285-295) mOsm/k g Calcium 9.5 (8.5-10.5) mg/dL Total Bilirubin 0.2 (0.15-1.2) mg/dL AST 19 (0-32) U/L ALT 15 (0-33) U/L Alkaline Phosphata se 109 H (35-105) IU/L Troponin T Baselin e < 6 (0-10) ng/L Troponin T 120 Min breanna (0-10) ng/L Delta Troponin T (0-10) ABS# Total Protein 7.6 (6.6-8.7) g/dL Albumin 4.1 (3.5-5.2) g/dL Globulin 3.5 (1.3-4.6) g/dL 04/09/20 Range/Units 10:39 WBC (4.0-10.0) 10^3/ uL RBC (4.1-5.3) 10^6/u L Hgb (11.5-15.3) g/dL Hct (37.0-47.0) % MCV (81-99) fL MCH (28.0-34.0) pg MCHC (30.0-36.0) g/dL RDW (12.1-15.1) % Plt Count (130-400) 10^3/c mm MPV (7.4-10.4) fL Neut % (Auto) % Lymph % (Auto) % Mcintosh % (Auto) % Eos % (Auto) % Baso % (Auto) % Neut # (Auto) (1.8-7.7) 10^3/u L Lymph # (Auto) (0.8-4.8) 10^3/u L Mcintosh # (Auto) (0.2-0.9) 10^3/u L Eos # (Auto) (0.0-0.8) 10^3/u L Baso # (Auto) (0.0-0.1) 10^3/u L Nucleated RBC % (a uto) % Nucleated RBCs # /100WBC Sodium (136-145) mmol/L Potassium (3.5-5.1) mmol/L Chloride (98-107) mmol/L Carbon Dioxide (22-29) mmol/L Anion Gap (5-19) BUN (8-23) mg/dL Creatinine (0.5-0.9) mg/dL GFR Calculation (90-130) mL/min Glucose (65-115) mg/dL Calculated Osmolal ity (285-295) mOsm/k g Calcium (8.5-10.5) mg/dL Total Bilirubin (0.15-1.2) mg/dL AST (0-32) U/L ALT (0-33) U/L Alkaline Phosphata se (35-105) IU/L Troponin T Baselin e (0-10) ng/L Troponin T 120 Min breanna 6.00 (0-10) ng/L Delta Troponin T 0.23831 (0-10) ABS# Total Protein (6.6-8.7) g/dL Albumin (3.5-5.2) g/dL Globulin (1.3-4.6) g/dL Discharge Plan Discharge Patient Disposition: Home Clinical Impression: Atypical chest pain, Chest pain due to gastrointestinal reflux disease Condition: Stable Prescriptions: New hydrocodone-acetaminophen 5-325 mg tablet 1 tab PO Q6H PRN (Reason: pain) Qty: 20 RF: 0 Zofran 4 mg tablet 4 mg PO Q6H PRN (Reason: nausea and vomiting) Qty: 15 RF: 0 omeprazole 20 mg capsule,delayed release(DR/EC) 20 mg PO DAILY Qty: 30 RF: 1 No Action ascorbic acid (vitamin C) [Vitamin C] 1,000 mg Tablet 1,000 mg PO DAILY@08 RF: 0 sertraline [Zoloft] 100 mg Tablet 100 mg PO DAILY@08 RF: 0 potassium chloride 10 mEq Tablet Extended Release 10 meq PO DAILY@08 RF: 0 aspirin 81 mg Tablet,Delayed Release (Dr/Ec) 81 mg PO DAILY@08 RF: 0 acetaminophen [Tylenol Extra Strength] 500 mg Tablet 500 mg PO TID PRN (Reason: Pain) RF: 0 levothyroxine 50 mcg Tablet 50 mcg PO DAILY@07 RF: 0 mirtazapine 15 mg Tablet 15 mg PO BEDTIME@22 RF: 0 ergocalciferol (vitamin D2) 50,000 unit Capsule 50,000 unit PO Q7D RF: 0 vitamin B complex-folic acid [B Complex 100] 0.4 mg Tablet 1 tab PO DAILY@08 RF: 0 melatonin 10 mg Tablet 10 mg PO DAILY@22 RF: 0 Probiotic 3 billion cell Capsule 3,000 mmu cells PO DAILY@08 RF: 0 turmeric 400 mg Capsule 400 mg PO DAILY@08 RF: 0 pantoprazole 40 mg Tablet,Delayed Release (Dr/Ec) 40 mg PO DAILY@08 RF: 0 Benadryl 25 mg Capsule 25 mg PO BEDTIME@22 RF: 0 Keppra 750 mg Tablet 750 mg PO BID@08,20 RF: 0 Discharge Orders: Discharge ED (Routine); Ordered 04/09/20 Ordered By: Jacques Mott Referrals: Ana María Hoffmann DPM [Primary Care Provider] - Coding Level of Care Code ED Web Content Executive for Chg Fwd Exam Comprehensive
--- NOTE | 2020-04-09 08:30 | PC.NURSE ---
XR performed at bedside
[2020-04-09 09:03] LABS: Basophils % 0.6 %; Eosinophils # 0.1 10^3/uL (0.0-0.8); Eosinophils % 2.4 %; Hematocrit 35.4 % (37.0-47.0); Hemoglobin 11.5 g/dL (11.5-15.3); Lymphocytes # 1.4 10^3/uL (0.8-4.8); Lymphocytes % 26.7 %; Mean Corpuscular HGB Conc 32.5 g/dL (30.0-36.0); Mean Corpuscular Hemoglobin 30.8 pg (28.0-34.0); Mean Corpuscular Volume 94.9 fL (81-99); Mean Platelet Volume 9.1 fL (7.4-10.4); Monocytes # 0.2 10^3/uL (0.2-0.9); Monocytes % 3.4 %; Neutrophils # 3.37 10^3/uL (1.8-7.7); Neutrophils % 66.7 %; Nucleated Red Blood Cells % 0 %; Platelet Count 113 10^3/cmm (130-400); Red Blood Count 3.73 10^6/uL (4.1-5.3); Red Cell Distribution Width 13.6 % (12.1-15.1); White Blood Count 5.1 10^3/uL (4.0-10.0)
[2020-04-09 09:24] LABS: Alanine Aminotransferase 15 U/L (0-33); Albumin Level 4.1 g/dL (3.5-5.2); Alkaline Phosphatase 109 IU/L (35-105); Anion Gap 14.2 (5-19); Aspartate Amino Transferase 19 U/L (0-32); Blood Urea Nitrogen 11 mg/dL (8-23); Calcium 9.5 mg/dL (8.5-10.5); Carbon Dioxide 29 mmol/L (22-29); Chloride 102 mmol/L (98-107); Globulin 3.5 g/dL (1.3-4.6); Glomerular Filtration Rate 56.4 mL/min (90-130); Glucose 93 mg/dL (65-115); Osmolality Calculated 291 mOsm/kg (285-295); Potassium 4.2 mmol/L (3.5-5.1); Sodium 141 mmol/L (136-145); Total Bilirubin 0.2 mg/dL (0.15-1.2); Total Protein 7.6 g/dL (6.6-8.7)
[2020-04-09 09:40] LABS: Slide Review Slide Review Perform
[2020-04-09 10:01] LABS: Troponin(5th) Baseline < 6 ng/L (0-10)
--- NOTE | 2020-04-09 10:17 | ECG_ITS ---
[facility] Test Date: 2020-04-09 Pat Name: Charmaine Pascual Department: Room: Gender: Female Light Oil Operator: : 1960 Requested By: Jacques Flores Order Number: [id number] Zoya MD: Chun Walker M.D. Measurements Intervals [place] Rate: 58 P: 9 ID: [id number] QRS: 58 QRSD: 88 T: 33 QT: 430 QTc: 425 Interpretive Statements SINUS BRADYCARDIA Compared to ECG 04/09/2020 08:21:18 Sinus rhythm no longer present Electronically Signed On 04-09-2020 19:29:30 LANDSCAPE ENGINEER by Chun Walker M.D. [id number]
[2020-04-09 11:14] LABS: Troponin 5 2HR Delta 0.00001 ABS# (0-10)
== END 2020-04-09 12:17 | disposition home or self-care (01) ==
PROVIDERS: Emergency Provider Family Medicine; PCP Nurse Practitioner
DX: R07.89 Other chest pain (principal); K21.9 Gastro-esophageal reflux disease without esophagitis; Z79.82 Long term (current) use of aspirin; Z87.891 Personal history of nicotine dependence
CPT/HCPCS: 12345; 71045; 80053; 84484; 85025; 93005; 99283

== ENCOUNTER 2020-06-17 18:56 | Emergency (ER) | payer MEDICAID, SELFPAY ==
[2020-06-17 19:12] VITALS: BP 154/88; PULSE 76; RESP 18; TEMP 36.6; O2SAT 95; BMI 22.3
[2020-06-17 20:17] VITALS: BP 161/90; PULSE 75; RESP 17; O2SAT 96
--- NOTE | 2020-06-17 20:18 | CTR_ITS ---
PROCEDURE INFORMATION: Exam: CT Head Without Contrast Exam date and time: 06/17/2020 8:23 PM Age: 60 years old Clinical indication: Pain; Headache not specified; Patient HX: Headache with nausea. History of metastatic cancer with brain lesions. ; Additional info: MICHEL TECHNIQUE: Imaging protocol: Computed tomography of the head without contrast. Radiation optimization: All CT scans at this facility use at least one of these dose optimization techniques: automated exposure control; mA and/or kV adjustment per patient size (includes targeted exams where dose is matched to clinical indication); or iterative reconstruction. COMPARISON: CT head wo con* [id number] 11/30/2019 9:33 PM RADIATION DOSE METRICS: Total DLP (mGy-cm): 753.53 FINDINGS: Brain: Small region of calcium deposition and adjacent small area of decreased attenuation in the right frontal lobe subcortical white matter stable from prior. No acute intracranial hemorrhage identified. No midline shift of brain. No acute cerebral sulcal effacement. Knapp matter and white matter differentiation is preserved. Small area of low-attenuation white matter change in the posterior right temporal lobe is nonspecific and somewhat more conspicuous than prior. Cerebral ventricles: No ventriculomegaly. Bones/joints: Unremarkable. No acute fracture. Paranasal sinuses: Visualized sinuses are unremarkable. No fluid levels. Mastoid air cells: Visualized mastoid air cells are well aerated. Soft tissues: Unremarkable. CT/CT head wo con* [id number] IMPRESSION: 1. Negative for intracranial hemorrhage. 2. Right frontal lobe lesion stable in appearance from prior. 3. Small region of decreased attenuation in the posterior right temporal lobe appear slightly more conspicuous than prior. Uncertain if this is secondary to slice thickness selection and positioning differences, or true white matter abnormality. 4. Recommend correlation with contrast enhanced brain MRI. Radiation Dose CTDIVOL = (mGy): DLP = 753.53 (mGy-cm)
--- NOTE | 2020-06-17 20:32 | W.ED.HA ---
HPI - Headache General: Chief Complaint: Headache Stated Complaint: H/A, N/V, HX OF BRAIN BLEED Time Seen by Provider: 06/17/20 20:17 Source: patient Mode of arrival: ambulatory Limitations: no limitations History of Present Illness: HPI Narrative: 60-year-old female who has a history of lung cancer with brain mets. She also had a small intracranial hemorrhage a year ago. She states she gets headaches from her cancer. States she had a headache that started today that just was atypical for her headaches. She states its not severe in nature and currently rates a 5 out of 10. Denies any worsening improving factors. She had some nausea no vomiting. Denies any recent falls or injuries Associated symptoms: Deny chest pain, fever(s), nausea, rash or vomiting Review of Systems Const: Denies: fever(s), chills, body aches or change in appetite Eyes: Denies: blurry vision or eye discomfort ENMT: Denies: throat pain or dental pain Card: Denies: chest pain Resp: Denies: dyspnea GI: Denies: abdominal pain, nausea, vomiting or diarrhea : Denies: dysuria Musc: Denies: neck pain or back pain Skin/Breast: Denies: rash Neuro: Reports: headache(s) Psych: Denies: depression Latrell/Lymph: Denies: easy bruising All/Imm: Denies: urticaria PFSH ED PFSH: Social History Smoking and tobacco status: former smoker Physical Exam Const: COMMON NORMALS: no acute distress, patient oriented x3 and healthy appearing HENMT: COMMON NORMALS: normocephalic and atraumatic HEAD & SCALP: normocephalic and atraumatic Eye: COMMON NORMALS: Equal, round and reactive pupils present and EOMs intact bilaterally PUPIL: Yes Equal, round and reactive pupils present Neck/C-Spine: COMMON NORMALS: full ROM, supple and no meningeal signs Chest: COMMONS NORMALS: normal inspection of the chest and normal palpation of entire chest wall Resp: COMMON NORMALS: normal respiratory effort, No retractions, No use of accessory muscles and clear to auscultation bilaterally AUSCULTATION: clear to auscultation bilaterally Cardio: COMMON NORMALS: regular rate, regular rhythm and No murmurs present (Cardio) RATE: regular rate RHYTHM: regular rhythm GI: COMMON NORMALS: Normal to inspection, nondistended, normoactive bowel sounds present, Soft to palpation, non-tender and no masses PALPATION: Yes Soft to palpation Extremity: COMMON NORMALS: normal to inspection and full ROM Neuro: COMMON NORMALS: patient oriented x3, moves all extremities and no focal motor deficits MENINGEAL SIGNS: Yes no meningeal signs Psych: COMMON NORMALS: mental status grossly normal, Normal thought process present and cooperative THOUGHT PROCESS: Normal thought process present Skin: COMMON NORMALS: no rashes or lesions noted and no wounds GENERAL SKIN EXAM: no rashes or lesions noted Course Vital Signs: Vital signs: Vital Signs Temperature 97.8 F 06/17/20 19:12 Pulse Rate 74 06/17/20 21:30 Respiratory Rate 17 06/17/20 20:17 Blood Pressure 134/90 06/17/20 21:30 Pulse Oximetry 95 06/17/20 21:30 MDM - Headache MDM Narrative: Medical decision making narrative: Charmaine presents with a headache that is mild in nature and is resolved here. She has no signs of subarachnoid hemorrhage. I did inform her of the CT findings and she states she is already scheduled for an MRI at the end of this month. She is to follow-up as scheduled and return the ER if her headache returns. She understands and agrees to the plan. Lab Data: Labs: Lab Results 06/17/20 06/17/20 Range/Units 21:15 21:15 WBC 9.5 (4.0-10.0) 10^3/ uL RBC 3.99 L (4.1-5.3) 10^6/u L Hgb 12.0 (11.5-15.3) g/dL Hct 37.1 (37.0-47.0) % MCV 93.0 (81-99) fL MCH 30.1 (28.0-34.0) pg MCHC 32.3 (30.0-36.0) g/dL RDW 13.1 (12.1-15.1) % Plt Count 328 (130-400) 10^3/c mm MPV 8.4 (7.4-10.4) fL Neut % (Auto) 80.7 % Lymph % (Auto) 13.4 % [place] % (Auto) 3.9 % Eos % (Auto) 1.2 % Baso % (Auto) 0.6 % Neut # (Auto) 7.70 (1.8-7.7) 10^3/u L Lymph # (Auto) 1.3 (0.8-4.8) 10^3/u L [place] # (Auto) 0.4 (0.2-0.9) 10^3/u L Eos # (Auto) 0.1 (0.0-0.8) 10^3/u L Baso # (Auto) 0.1 (0.0-0.1) 10^3/u L Nucleated RBC % (a uto) 0 % Nucleated RBCs # 0.0 /100WBC Sodium 139 (136-145) mmol/L Potassium 4.4 (3.5-5.1) mmol/L Chloride 101 (98-107) mmol/L Carbon Dioxide 29 (22-29) mmol/L Anion Gap 13.4 (5-19) BUN 10 (8-23) mg/dL Creatinine 0.9 (0.5-0.9) mg/dL Glucose 89 (65-115) mg/dL Calculated Osmolal ity 287 (285-295) mOsm/k g Calcium 9.3 (8.5-10.5) mg/dL Total Bilirubin 0.2 (0.15-1.2) mg/dL AST 18 (0-32) U/L ALT 12 (0-33) U/L Alkaline Phosphata se 104 (35-105) IU/L Total Protein 7.8 (6.6-8.7) g/dL Albumin 4.2 (3.5-5.2) g/dL Globulin 3.6 (1.3-4.6) g/dL Imaging Data^: CT Head: Attestation: I personally reviewed and interpreted this imaging study as follows: Radiologist's impression: [address] [address] [address] Scan Report Signed Patient: Charmaine Pascual Unit #: [id number] : 1960 Age/Sex: 60 / F ADM Date: 06/17/20 Loc: ER Room/Bed: Attending Dr: Ordering Provider/Ordering MD: Santos Sargent MD Date of Service: 06/17/20 Procedure(s): CT head wo con* [id number] Accession Number(s): [id number] Report Number: [id number] PROCEDURE INFORMATION: Exam: CT Head Without Contrast Exam date and time: 06/17/2020 8:23 PM Age: 60 years old Clinical indication: Pain; Headache not specified; Patient HX: Headache with nausea. History of metastatic cancer with brain lesions. ; Additional info: MICHEL TECHNIQUE: Imaging protocol: Computed tomography of the head without contrast. Radiation optimization: All CT scans at this facility use at least one of these dose optimization techniques: automated exposure control; mA and/or kV adjustment per patient size (includes targeted exams where dose is matched to clinical indication); or iterative reconstruction. COMPARISON: CT head wo con* [id number] 11/30/2019 9:33 PM RADIATION DOSE METRICS: Total DLP (mGy-cm): 753.53 FINDINGS: Brain: Small region of calcium deposition and adjacent small area of decreased attenuation in the right frontal lobe subcortical white matter stable from prior. No acute intracranial hemorrhage identified. No midline shift of brain. No acute cerebral sulcal effacement. [place] matter and white matter differentiation is preserved. Small area of low-attenuation white matter change in the posterior right temporal lobe is nonspecific and somewhat more conspicuous than prior. Cerebral ventricles: No ventriculomegaly. Bones/joints: Unremarkable. No acute fracture. Paranasal sinuses: Visualized sinuses are unremarkable. No fluid levels. Mastoid air cells: Visualized mastoid air cells are well aerated. Soft tissues: Unremarkable. CT/CT head wo con* [id number] IMPRESSION: 1. Negative for intracranial hemorrhage. 2. Right frontal lobe lesion stable in appearance from prior. 3. Small region of decreased attenuation in the posterior right temporal lobe appear slightly more conspicuous than prior. Uncertain if this is secondary to slice thickness selection and positioning differences, or true white matter abnormality. 4. Recommend correlation with contrast enhanced brain mri Discharge Plan Discharge Patient Disposition: Home Clinical Impression: Headache Qualifiers: Headache type: unspecified Headache chronicity pattern: unspecified pattern Intractability: not intractable Qualified Code(s): R51.9 - Headache, unspecified Condition: Stable Prescriptions: No Action ascorbic acid (vitamin C) [Vitamin C] 1,000 mg Tablet 1,000 mg PO DAILY@08 RF: 0 sertraline [Zoloft] 100 mg Tablet 100 mg PO DAILY@08 RF: 0 potassium chloride 10 mEq Tablet Extended Release 10 meq PO DAILY@08 RF: 0 aspirin 81 mg Tablet,Delayed Release (Dr/Ec) 81 mg PO DAILY@08 RF: 0 acetaminophen [Tylenol Extra Strength] 500 mg Tablet 500 mg PO TID PRN (Reason: Pain) RF: 0 levothyroxine 50 mcg Tablet 50 mcg PO DAILY@07 RF: 0 mirtazapine 15 mg Tablet 15 mg PO BEDTIME@22 RF: 0 ergocalciferol (vitamin D2) 50,000 unit Capsule 50,000 unit PO Q7D RF: 0 vitamin B complex-folic acid [B Complex 100] 0.4 mg Tablet 1 tab PO DAILY@08 RF: 0 melatonin 10 mg Tablet 10 mg PO DAILY@22 RF: 0 Probiotic 3 billion cell Capsule 3,000 mmu cells PO DAILY@08 RF: 0 turmeric 400 mg Capsule 400 mg PO DAILY@08 RF: 0 pantoprazole 40 mg Tablet,Delayed Release (Dr/Ec) 40 mg PO DAILY@08 RF: 0 Benadryl 25 mg Capsule 25 mg PO BEDTIME@22 RF: 0 Keppra 750 mg Tablet 750 mg PO BID@08,20 RF: 0 hydrocodone-acetaminophen 5-325 mg tablet 1 tab PO Q6H PRN (Reason: pain) Qty: 20 RF: 0 Zofran 4 mg tablet 4 mg PO Q6H PRN (Reason: nausea and vomiting) Qty: 15 RF: 0 omeprazole 20 mg capsule,delayed release(DR/EC) 20 mg PO DAILY Qty: 30 RF: 1 Discharge Orders: Discharge ED (Routine); Ordered 06/17/20 Ordered By: Santos Sargent Referrals: Juan A Garvin DO [Primary Care Provider] - 1-3 days Discharge Diet: Advance as tolerated Discharge Activity: Resume usual activity Patient Instructions: Acute Headache (ED) Coding Level of Care Code ED Software Quality Engineer for Lorena Fwd Exam Comprehensive
[2020-06-17] MEDS: sodium chloride 0.9% 1,000 ML 999 ML IV (21:24)
[2020-06-17] MEDS: diphenhydrAMINE 50 mg/mL SDV 1mL 25 MG IVP (21:24)
[2020-06-17] MEDS: metoclopramide 5 mg/mL SDV 2 mL IVP (21:24)
[2020-06-17 21:30] VITALS: BP 134/90; PULSE 74; O2SAT 95
[2020-06-17 21:33] LABS: Basophils # 0.1 10^3/uL (0.0-0.1); Basophils % 0.6 %; Eosinophils # 0.1 10^3/uL (0.0-0.8); Eosinophils % 1.2 %; Hematocrit 37.1 % (37.0-47.0); Lymphocytes # 1.3 10^3/uL (0.8-4.8); Lymphocytes % 13.4 %; Mean Corpuscular HGB Conc 32.3 g/dL (30.0-36.0); Mean Corpuscular Hemoglobin 30.1 pg (28.0-34.0); Mean Platelet Volume 8.4 fL (7.4-10.4); Monocytes # 0.4 10^3/uL (0.2-0.9); Monocytes % 3.9 %; Neutrophils % 80.7 %; Nucleated Red Blood Cells % 0 %; Platelet Count 328 10^3/cmm (130-400); Red Blood Count 3.99 10^6/uL (4.1-5.3); Red Cell Distribution Width 13.1 % (12.1-15.1); White Blood Count 9.5 10^3/uL (4.0-10.0)
[2020-06-17 21:43] LABS: Alanine Aminotransferase 12 U/L (0-33); Albumin Level 4.2 g/dL (3.5-5.2); Alkaline Phosphatase 104 IU/L (35-105); Anion Gap 13.4 (5-19); Aspartate Amino Transferase 18 U/L (0-32); Blood Urea Nitrogen 10 mg/dL (8-23); Calcium 9.3 mg/dL (8.5-10.5); Carbon Dioxide 29 mmol/L (22-29); Chloride 101 mmol/L (98-107); Globulin 3.6 g/dL (1.3-4.6); Glomerular Filtration Rate 63.7 mL/min (90-130); Glucose 89 mg/dL (65-115); Osmolality Calculated 287 mOsm/kg (285-295); Potassium 4.4 mmol/L (3.5-5.1); Sodium 139 mmol/L (136-145); Total Bilirubin 0.2 mg/dL (0.15-1.2); Total Protein 7.8 g/dL (6.6-8.7)
[2020-06-17 22:19] VITALS: BP 116/83; PULSE 79; O2SAT 97
== END 2020-06-17 22:20 | disposition home or self-care (01) ==
PROVIDERS: Emergency Provider Emergency Medicine; PCP Family Medicine
DX: R51.9 Headache, unspecified (principal); Z79.82 Long term (current) use of aspirin; Z87.891 Personal history of nicotine dependence
CPT/HCPCS: 70450; 80053; 85025; 96361; 96374; 96375; 99283; J1200; J1642; J2765; J7030

== ENCOUNTER 2020-08-30 08:07 | Emergency (ER) | payer MEDICAID, SELFPAY ==
[2020-08-30 08:08] VITALS: BP 127/72; PULSE 53; RESP 16; TEMP 36.3; O2SAT 91; BMI 24.5
--- NOTE | 2020-08-30 08:16 | CT_ITS ---
NOTE: Report was unsigned for reason: Order was edited. Original Signature date and time was: 08/30/20 @930 WS: [id number] CT HEAD NONCONTRAST HISTORY: lung CA w brain mets TECHNIQUE: Contiguous axial imaging performed through the brain in 2.5 mm imaging. Bone and soft tissue windows. Sagittal and coronal reformats reviewed. All CT scans at [facility] use at least one of these dose optimization techniques: automated exposure control; mA and/or kV adjustment per patient size (includes targeted exams where dose is matched to clinical indication); or iterative reconstruction. DLP: 755.92 mGy.cm COMPARISON: 11/30/2019 and 06/17/2020 Focal area of low attenuation maximum diameter of 10 mm in the RIGHT frontal lobe with a stable 3 mm area of increased density which is probably calcification based upon the stable appearance since 11/30/2019. Mild chronic microvascular ischemic disease. Mild atrophy. Ventricles: Normal size with no hydrocephalus. Paranasal sinuses: Mild mucoperiosteal thickening in the sinuses. Mastoid air cells: Well pneumatized. Calvarium and scalp: Skull is intact with no soft tissue edema or swelling. [facility] CT/CT head wo con* [id number] IMPRESSION: 1. Stable 10 mm low-attenuation lesion with calcification in the RIGHT frontal lobe. No change since 11/30/2019. 2. Mild atrophy and chronic microvascular ischemic disease.
[2020-08-30 08:17] VITALS: BP 114/70; PULSE 54; PULSE 59; O2SAT 93
--- NOTE | 2020-08-30 08:17 | ECG_ITS ---
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
--- NOTE | 2020-08-30 08:22 | ED_ITS ---
HPI - Chest Pain General: Chief Complaint: Chest Pain Stated Complaint: CHEST PAIN Time Seen by Provider: 08/30/20 08:09 History of Present Illness: HPI narrative: 60-year-old female presents emergency room with complaint of centralized chest pain with nausea vomiting cough. Patient states she is not able to keep anything down she ate some beans last night she has not had a problem with esophageal impaction in the past. She does have a known history of lung CA with brain mets. She is not really able to get much give much for history fortunately her daughter is with her and is able to answer most questions and supply her history. She sees an oncologist in [place]. She has not been on any treatment for her lung cancer for the last 6 months. MD complaint: chest pain Pertinent past history: coronary artery disease Onset (ago): minute(s) Timing of current episode: constant Onset: during rest Pain location: substernal Pain radiation: none Severity: moderate Quality: aching Relieving factors: nothing Exacerbating factors: nothing Associated symptoms: Reports nausea, syncope and vomiting; Deny abdominal pain, diaphoresis, dyspnea, fever(s), leg edema, palpitations or sense of impending doom Treatment prior to arrival: none Review of Systems Const: Denies: fever(s) or diaphoresis ENMT: Denies: throat pain, ear or mastoid pain, nasal discharge or nasal congestion Card: Reports: syncope; Denies: palpitations Resp: Denies: dyspnea GI: Reports: nausea and vomiting; Denies: abdominal pain : Denies: flank pain, difficulty voiding, dysuria, urinary frequency or urinary urgency Skin/Breast: Denies: rash or pruritus PFS ED PFSH: Social History Smoking and tobacco status: former smoker Physical Exam Const: COMMON NORMALS: no acute distress GENERAL APPEARANCE: cooperative and comfortable ORIENTATION/CONSCIOUSNESS: Yes awake, Yes oriented to person, Yes oriented to place and Yes oriented to time HENMT: COMMON NORMALS: normocephalic, atraumatic and hearing grossly normal bilaterally HEAD & SCALP: normocephalic and atraumatic Neck/C-Spine: COMMON NORMALS: no JVD Resp: COMMON NORMALS: normal respiratory effort, No retractions, No use of accessory muscles and clear to auscultation bilaterally AUSCULTATION: clear to auscultation bilaterally Cardio: COMMON NORMALS: no JVD, regular rate, regular rhythm and No murmurs present (Cardio) RATE: regular rate RHYTHM: regular rhythm GI: COMMON NORMALS: Soft to palpation and No hepatosplenomegaly present AUSCULTATION: Yes normoactive bowel sounds PALPATION: Yes Soft to palpation, No Tenderness to palpation present (GI), No Guarding due to palpation present (GI) and Yes No hepatosplenomegaly present Extremity: COMMON NORMALS: normal to inspection, capillary refill normal, no clubbing, cyanosis or edema, no calf tenderness and no pedal edema Neuro: SENSORIUM/ORIENTATION: Yes oriented to person, Yes oriented to place and Yes oriented to time Skin: COMMON NORMALS: no rashes or lesions noted GENERAL SKIN EXAM: no rashes or lesions noted Course Vital Signs: Vital signs: Vital Signs Temperature 97.3 F L 08/30/20 08:08 Pulse Rate 61 08/30/20 11:03 Respiratory Rate 16 08/30/20 08:08 Blood Pressure 116/71 08/30/20 10:30 Pulse Oximetry 98 08/30/20 11:03 MDM - Chest Pain MDM Narrative: Medical decision making narrative: Patient is feeling much better her cardiac enzymes are negative EKG is unremarkable. Organ to go ahead and discharge her home her symptoms have completely resolved and she is able to swallow p.o. fluids CT did not show a PE or any other significant pathology that might be a cause of this. Suspect she may have had some esophageal spasm. We will start her on Carafate to use as needed as well as promethazine as needed. Return if has problems otherwise follow-up with her primary care doctor within a week. Lab Data: Labs: Lab Results 08/30/20 08/30/20 08/30/20 Range/Units 08:31 08:31 08:31 WBC 5.7 (4.0-10.0) 10^3/ uL RBC 3.88 L (4.1-5.3) 10^6/u L Hgb 11.6 (11.5-15.3) g/dL Hct 36.5 L (37.0-47.0) % MCV 94.1 (81-99) fL MCH 29.9 (28.0-34.0) pg MCHC 31.8 (30.0-36.0) g/dL RDW 13.9 (12.1-15.1) % Plt Count 323 (130-400) 10^3/c mm MPV 8.6 (7.4-10.4) fL Neut % (Auto) 60.1 % Lymph % (Auto) 30.3 % [place] % (Auto) 5.3 % Eos % (Auto) 3.0 % Baso % (Auto) 0.9 % Neut # (Auto) 3.44 (1.8-7.7) 10^3/u L Lymph # (Auto) 1.7 (0.8-4.8) 10^3/u L [place] # (Auto) 0.3 (0.2-0.9) 10^3/u L Eos # (Auto) 0.2 (0.0-0.8) 10^3/u L Baso # (Auto) 0.1 (0.0-0.1) 10^3/u L Nucleated RBC % (a uto) 0 % Nucleated RBCs # 0.0 /100WBC Sodium (136-145) mmol/L Potassium (3.5-5.1) mmol/L Chloride (98-107) mmol/L Carbon Dioxide (22-29) mmol/L Anion Gap (5-19) BUN (8-23) mg/dL Creatinine (0.5-0.9) mg/dL GFR Calculation (90-130) mL/min Glucose (65-115) mg/dL Calculated Osmolal ity (285-295) mOsm/k g Lactic Acid 1.3 (0.5-2.2) mmol/L Calcium (8.5-10.5) mg/dL Total Bilirubin (0.15-1.2) mg/dL AST (0-32) U/L ALT (0-33) U/L Alkaline Phosphata se (35-105) IU/L Creatine Kinase (26-192) U/L Troponin T Baselin e 6 (0-10) ng/L Troponin T 120 Min [place] (0-10) ng/L Delta Troponin T (0-10) ABS# Total Protein (6.6-8.7) g/dL Albumin (3.5-5.2) g/dL Globulin (1.3-4.6) g/dL Urine Color (Yellow) Urine Appearance (CLEAR) Urine pH (5-7) Ur Specific Gravit y (1.005-1.030) Urine Protein (Negative) Urine Glucose (UA) (Normal) Urine Ketones (Negative) Urine Blood (Negative) Urine Nitrate (Negative) Urine Bilirubin (Negative) Urine Urobilinogen (Negative) mg/dL Ur Leukocyte Awilda ase (Negative) 08/30/20 08/30/20 08/30/20 Range/Units 08:31 08:48 10:50 WBC (4.0-10.0) 10^3/ uL RBC (4.1-5.3) 10^6/u L Hgb (11.5-15.3) g/dL Hct (37.0-47.0) % MCV (81-99) fL MCH (28.0-34.0) pg MCHC (30.0-36.0) g/dL RDW (12.1-15.1) % Plt Count (130-400) 10^3/c mm MPV (7.4-10.4) fL Neut % (Auto) % Lymph % (Auto) % [place] % (Auto) % Eos % (Auto) % Baso % (Auto) % Neut # (Auto) (1.8-7.7) 10^3/u L Lymph # (Auto) (0.8-4.8) 10^3/u L [place] # (Auto) (0.2-0.9) 10^3/u L Eos # (Auto) (0.0-0.8) 10^3/u L Baso # (Auto) (0.0-0.1) 10^3/u L Nucleated RBC % (a uto) % Nucleated RBCs # /100WBC Sodium 143 (136-145) mmol/L Potassium 3.8 (3.5-5.1) mmol/L Chloride 104 (98-107) mmol/L Carbon Dioxide 28 (22-29) mmol/L Anion Gap 14.8 (5-19) BUN 9 (8-23) mg/dL Creatinine 0.9 (0.5-0.9) mg/dL GFR Calculation 63.7 L (90-130) mL/min Glucose 116 H (65-115) mg/dL Calculated Osmolal ity 296 H (285-295) mOsm/k g Lactic Acid (0.5-2.2) mmol/L Calcium 9.0 (8.5-10.5) mg/dL Total Bilirubin 0.2 (0.15-1.2) mg/dL AST 18 (0-32) U/L ALT 13 (0-33) U/L Alkaline Phosphata se 119 H (35-105) IU/L Creatine Kinase 45 (26-192) U/L Troponin T Baselin e (0-10) ng/L Troponin T 120 Min [place] 6.00 (0-10) ng/L Delta Troponin T 0 (0-10) ABS# Total Protein 7.3 (6.6-8.7) g/dL Albumin 4.4 (3.5-5.2) g/dL Globulin 2.9 (1.3-4.6) g/dL Urine Color Yellow (Yellow) Urine Appearance Clear (CLEAR) Urine pH 7 (5-7) Ur Specific Gravit y 1.010 (1.005-1.030) Urine Protein Neg (Negative) Urine Glucose (UA) Norm (Normal) Urine Ketones Negative (Negative) Urine Blood Neg (Negative) Urine Nitrate Negative (Negative) Urine Bilirubin Neg (Negative) Urine Urobilinogen Norm (Negative) mg/dL Ur Leukocyte Awilda ase Negative (Negative) Discharge Plan Discharge Patient Disposition: Home Clinical Impression: Atypical chest pain, Esophageal spasm, Lung cancer Condition: Stable Prescriptions: New Carafate 1 gram tablet 1 g PO .q6h prn 56 Days Qty: 180 RF: 0 promethazine 25 mg tablet 25 mg PO Q6H PRN (Reason: nausea and vomiting) Qty: 20 RF: 0 No Action ascorbic acid (vitamin C) [Vitamin C] 1,000 mg Tablet 1,000 mg PO DAILY@08 RF: 0 sertraline [Zoloft] 100 mg Tablet 100 mg PO DAILY@08 RF: 0 potassium chloride 10 mEq Tablet Extended Release 10 meq PO DAILY@08 RF: 0 aspirin 81 mg Tablet,Delayed Release (Dr/Ec) 81 mg PO DAILY@08 RF: 0 acetaminophen [Tylenol Extra Strength] 500 mg Tablet 500 mg PO TID PRN (Reason: Pain) RF: 0 mirtazapine 15 mg Tablet 15 mg PO BEDTIME@22 RF: 0 ergocalciferol (vitamin D2) 50,000 unit Capsule 50,000 unit PO Q7D RF: 0 vitamin B complex-folic acid [B Complex 100] 0.4 mg Tablet 1 tab PO DAILY@08 RF: 0 melatonin 10 mg Tablet 10 mg PO DAILY@22 RF: 0 Probiotic 3 billion cell Capsule 3,000 mmu cells PO DAILY@08 RF: 0 turmeric 400 mg Capsule 400 mg PO DAILY@08 RF: 0 pantoprazole 40 mg Tablet,Delayed Release (Dr/Ec) 40 mg PO DAILY@08 RF: 0 diphenhydramine HCl [Benadryl] 25 mg Capsule 25 mg PO BEDTIME@22 RF: 0 levetiracetam [Keppra] 750 mg Tablet 750 mg PO BID@, RF: 0 Discharge Orders: Discharge ED (Routine); Ordered 08/30/20 Ordered By: Jacques Mott Referrals: Juan A Garvin DO [Primary Care Provider] - Discharge Diet: Usual diet Discharge Activity: Resume usual activity Patient Instructions: Opioid Safety Activity Restrictions/Additional Instructions: Follow-up with your primary care provider within a week. Coding Level of Care Code ED Tool Dispatcher for Lorena Jorge
--- NOTE | 2020-08-30 08:33 | CTR_ITS ---
PROCEDURE INFORMATION: Exam: CTA Chest With Contrast Exam date and time: 08/30/2020 9:31 AM Age: 60 years old Clinical indication: Chest pain; Prior surgery; Additional info: Lung CA with known mets new onset chest abdominal pain TECHNIQUE: Imaging protocol: Computed tomographic angiography of the chest with contrast. 3D rendering (Not supervised by radiologist): MIP and/or 3D reconstructed images were created by the technologist. Radiation optimization: All CT scans at this facility use at least one of these dose optimization techniques: automated exposure control; mA and/or kV adjustment per patient size (includes targeted exams where dose is matched to clinical indication); or iterative reconstruction. Contrast material: OMNI 350; Contrast volume: 95 ml; Contrast route: INTRAVENOUS (IV); COMPARISON: CR XR chest 1V portable [id number] 05/22/2019 7:32 PM RADIATION DOSE METRICS: Total DLP (mGy-cm): 998.3 FINDINGS: Pulmonary arteries: Normal. No pulmonary emboli. Aorta: Unremarkable. No aortic aneurysm. No aortic dissection. Veins: Left IJ approach MediPort is in satisfactory position, with distal tip in the SVC, approximately 4 cm above the SVC/RA junction. Lungs: Centrilobular emphysema is present. Tiny bilateral calcified granulomas noted. The patient is status post right upper lobectomy. Areas of linear scarring noted in the right middle and lower lobes. No suspicious lung nodule or mass identified. There is a 0.4 cm triangular shaped nodule in the posterosuperior right lower lobe, likely representing an intrapulmonary lymph node. Pleural spaces: There is a small right pleural effusion with pleural thickening and enhancing nodularity. Heart: Unremarkable. No cardiomegaly. No pericardial effusion. Mediastinal space: Paraesophageal surgical clips noted. Lymph nodes: Small mediastinal lymph nodes noted, the largest measuring 0.7 cm in transverse dimension in the precarinal region. Bones/joints: Unremarkable. No acute fracture. Soft tissues: Unremarkable. IMPRESSION: 1. Small right pleural effusion with pleural thickening and enhancing nodularity, concerning for metastatic disease. 2. No pulmonary embolus. PROCEDURE INFORMATION: Exam: CT Abdomen And Pelvis With Contrast Exam date and time: 08/30/2020 9:31 AM Age: 60 years old Clinical indication: Chest pain; Prior surgery; Additional info: Lung CA with known mets new onset chest abdominal pain TECHNIQUE: Imaging protocol: Computed tomography of the abdomen and pelvis with contrast. Radiation optimization: All CT scans at this facility use at least one of these dose optimization techniques: automated exposure control; mA and/or kV adjustment per patient size (includes targeted exams where dose is matched to clinical indication); or iterative reconstruction. Contrast material: OMNI 350; Contrast volume: 95 ml; Contrast route: INTRAVENOUS (IV); COMPARISON: CR XR chest 1V portable [id number] 05/22/2019 7:32 PM RADIATION DOSE METRICS: Total DLP (mGy-cm): 998.3 FINDINGS: Liver: There is a subcentimeter hypodense lesion in the left hepatic lobe, which is too small to characterize. A tiny calcified granuloma is seen in the right hepatic lobe. The liver is otherwise unremarkable. Gallbladder and bile ducts: The gallbladder has been surgically removed. No intra or extrahepatic biliary ductal dilatation seen. Pancreas: Normal. No ductal dilation. Spleen: There is tiny calcific densities scattered throughout the spleen, likely sequela of previous granulomatous disease. The spleen is otherwise unremarkable. Adrenal glands: Normal. No mass. Kidneys and ureters: There is a subcentimeter hypodense lesion in the right lower kidney, which is too small to characterize. There is mild thinning and lobulation of the right renal cortex, suggestive of chronic scarring. Symmetric enhancement of the kidneys. No hydronephrosis or nephrolithiasis. Stomach and bowel: Unremarkable. No obstruction. No mucosal thickening. Appendix: The appendix is not clearly seen and may be absent. Intraperitoneal space: Unremarkable. No free air. No significant fluid collection. Vasculature: Mild diffuse atherosclerotic disease is present. A retroaortic left renal vein is incidentally noted. Lymph nodes: Unremarkable. Urinary bladder: Unremarkable as visualized. Reproductive: A 2.7 cm ovarian cyst is noted on the right. Bones/joints: Unremarkable. No acute fracture. Soft tissues: Unremarkable. CT/CT angio chest w abd pel w con IMPRESSION: 1. No acute intra-abdominal or intrapelvic pathology. 2. No clear evidence of metastatic disease. COMMENTS: Consistent with the [employer]'s Incidental Findings Committee white paper (J Am Delia Radiol 2018): Any incidental renal lesion less than 1 cm or classified as too small to characterize, or any incidental cystic renal lesion characterized as simple-appearing, is likely benign. No follow-up imaging is recommended for these lesions per consensus recommendations based on imaging criteria. Radiation Dose CTDIVOL = (mGy): DLP = 998.3~998.3 (mGy-cm)
[2020-08-30 08:50] LABS: Basophils # 0.1 10^3/uL (0.0-0.1); Basophils % 0.9 %; Eosinophils # 0.2 10^3/uL (0.0-0.8); Hematocrit 36.5 % (37.0-47.0); Hemoglobin 11.6 g/dL (11.5-15.3); Lymphocytes # 1.7 10^3/uL (0.8-4.8); Lymphocytes % 30.3 %; Mean Corpuscular HGB Conc 31.8 g/dL (30.0-36.0); Mean Corpuscular Hemoglobin 29.9 pg (28.0-34.0); Mean Corpuscular Volume 94.1 fL (81-99); Mean Platelet Volume 8.6 fL (7.4-10.4); Monocytes # 0.3 10^3/uL (0.2-0.9); Monocytes % 5.3 %; Neutrophils # 3.44 10^3/uL (1.8-7.7); Neutrophils % 60.1 %; Nucleated Red Blood Cells % 0 %; Platelet Count 323 10^3/cmm (130-400); Red Blood Count 3.88 10^6/uL (4.1-5.3); Red Cell Distribution Width 13.9 % (12.1-15.1); White Blood Count 5.7 10^3/uL (4.0-10.0)
[2020-08-30 09:00] LABS: Lactic Sepsis W/Reflex 1.3 mmol/L (0.5-2.2)
[2020-08-30 09:01] LABS: Alanine Aminotransferase 13 U/L (0-33); Albumin Level 4.4 g/dL (3.5-5.2); Alkaline Phosphatase 119 IU/L (35-105); Anion Gap 14.8 (5-19); Aspartate Amino Transferase 18 U/L (0-32); Blood Urea Nitrogen 9 mg/dL (8-23); Carbon Dioxide 28 mmol/L (22-29); Chloride 104 mmol/L (98-107); Creatine Phosphokinase 45 U/L (26-192); Globulin 2.9 g/dL (1.3-4.6); Glomerular Filtration Rate 63.7 mL/min (90-130); Glucose 116 mg/dL (65-115); Osmolality Calculated 296 mOsm/kg (285-295); Potassium 3.8 mmol/L (3.5-5.1); Sodium 143 mmol/L (136-145); Total Bilirubin 0.2 mg/dL (0.15-1.2); Total Protein 7.3 g/dL (6.6-8.7)
[2020-08-30 09:02] LABS: Troponin(5th) Baseline 6 ng/L (0-10)
[2020-08-30 09:07] LABS: Add Urine Microscopic? NO; Charge for UA Resulting for Rev
[2020-08-30 09:11] LABS: Bilirubin Urine Neg (Negative); Blood Urine Neg (Negative); Glucose Urine UA Norm (Normal); Ketones Urine Negative (Negative); Leukocyte Esterase Urine Negative (Negative); Nitrate Urine Negative (Negative); Protein Urine Neg (Negative); Urine Appearance Clear (CLEAR); Urine Color Yellow (Yellow); Urobilinogen Urine Norm (Negative); pH Urine 7 (5-7)
[2020-08-30 09:17] VITALS: BP 122/70; PULSE 57; O2SAT 96
[2020-08-30] MEDS: iohexol 350 mg/mL 100 mL Btl IV (09:22)
--- NOTE | 2020-08-30 10:17 | ECG_ITS ---
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
[2020-08-30 10:30] VITALS: BP 116/71; PULSE 56; O2SAT 96
[2020-08-30 11:03] VITALS: PULSE 61; O2SAT 98
[2020-08-30 11:17] LABS: Troponin 5 2HR Delta 0 ABS# (0-10)
[2020-08-30 11:53] VITALS: PULSE 72; O2SAT 96
== END 2020-08-30 11:53 | disposition home or self-care (01) ==
PROVIDERS: Emergency Provider Family Medicine; PCP Family Medicine
DX: R07.89 Other chest pain (principal); K22.4 Dyskinesia of esophagus; C34.90 Malignant neoplasm of unspecified part of unspecified bronchus or lung; Z79.82 Long term (current) use of aspirin; Z87.891 Personal history of nicotine dependence
CPT/HCPCS: 36415; 70450; 70460; 71275; 74177; 80053; 81003; 82550; 83605; 84484; 85025; 87040; 93005; 99284; Q9967

== ENCOUNTER 2020-10-22 22:09 | Emergency (ER) | payer MEDICAID, SELFPAY ==
[2020-10-22 22:26] VITALS: BP 110/70; PULSE 80; RESP 16; TEMP 36.9; O2SAT 94; BMI 26.1
--- NOTE | 2020-10-23 01:18 | CTR_ITS ---
PROCEDURE INFORMATION: Exam: CT Head Without Contrast Exam date and time: 10/23/2020 1:18 AM Age: 60 years old Clinical indication: Pain; Headache not specified TECHNIQUE: Imaging protocol: Computed tomography of the head without contrast. Radiation optimization: All CT scans at this facility use at least one of these dose optimization techniques: automated exposure control; mA and/or kV adjustment per patient size (includes targeted exams where dose is matched to clinical indication); or iterative reconstruction. COMPARISON: CT head wo con* [id number] 08/30/2020 9:30 AM RADIATION DOSE METRICS: Total DLP (mGy-cm): 717.19 FINDINGS: Brain: Stable focal area of decreased attenuation in the right posterior temporal lobe which is nonspecific. No acute infarct or hemorrhage. Stable calcification in the right frontal lobe. Cerebral ventricles: No ventriculomegaly. Paranasal sinuses: Paranasal sinuses are clear. No air-fluid level. Mastoid air cells: Visualized mastoid air cells are clear. Bones/joints: No calvarial or skull base fracture. Soft tissues: Unremarkable. CT/CT head wo con* [id number] IMPRESSION: 1. No calvarial or skull base fracture. 2. No acute infarct or hemorrhage. 3. Nonspecific focal area of decreased attenuation in the right temporal lobe which is grossly stable. Evaluation with MRI may be helpful. 4. Stable calcification in the right frontal lobe. Radiation Dose CTDIVOL = (mGy): DLP = 717.19 (mGy-cm)
--- NOTE | 2020-10-23 01:18 | XRR_ITS ---
PROCEDURE INFORMATION: Exam: XR Chest Exam date and time: 10/23/2020 1:18 AM Age: 60 years old Clinical indication: Cough; Additional info: Cough cp TECHNIQUE: Imaging protocol: XR of the chest. Views: 1 view. COMPARISON: CT angio chest w abd pel w con 08/30/2020 9:34 AM FINDINGS: Tubes, catheters and devices: Left-sided MediPort is present with the tip in the proximal superior vena cava. Surgical clips overlie the mediastinum. Lungs: Unremarkable. No consolidation. Pleural spaces: Stable blunting of the right costophrenic angle. Heart/Mediastinum: Unremarkable. No cardiomegaly. Bones/joints: Unremarkable. XR/XR chest 1V portable [id number] IMPRESSION: No acute disease.
--- NOTE | 2020-10-23 01:20 | ECG_ITS ---
[facility] Test Date: 2020-10-23 Pat Name: Charmaine Pascual Department: Room: Gender: Female Medical Technologist Clinical: : 1960 Requested By: Miguel Angel Dai Order Number: [id number] Zoya MD: Chun Walker M.D. Measurements Intervals [place] Rate: 74 P: 16 ME: 138 QRS: 64 QRSD: 78 T: -1 QT: 372 QTc: 413 Interpretive Statements SINUS RHYTHM MINIMAL ST DEPRESSION [0.025+ mV ST DEPRESSION] ABNORMAL QRS-T ANGLE [QRS-T AXIS DIFFERENCE > 60] Compared to ECG 08/30/2020 10:20:57 ST (T wave) deviation now present Sinus bradycardia no longer present Sinus arrhythmia no longer present Electronically Signed On 10-23-2020 15:01:56 CDT by Chun Walker M.D. [id number]
[2020-10-23 02:40] LABS: Basophils # 0.1 10^3/uL (0.0-0.1); Basophils % 0.8 %; Eosinophils # 0.2 10^3/uL (0.0-0.8); Hematocrit 33.8 % (37.0-47.0); Hemoglobin 10.6 g/dL (11.5-15.3); Lymphocytes # 0.7 10^3/uL (0.8-4.8); Lymphocytes % 11.1 %; Mean Corpuscular HGB Conc 31.4 g/dL (30.0-36.0); Mean Corpuscular Hemoglobin 28.6 pg (28.0-34.0); Mean Corpuscular Volume 91.4 fL (81-99); Mean Platelet Volume 8.5 fL (7.4-10.4); Monocytes # 0.5 10^3/uL (0.2-0.9); Monocytes % 8.3 %; Neutrophils # 4.63 10^3/uL (1.8-7.7); Neutrophils % 76.5 %; Nucleated Red Blood Cells % 0 %; Platelet Count 309 10^3/cmm (130-400); Red Cell Distribution Width 13.7 % (12.1-15.1); White Blood Count 6.1 10^3/uL (4.0-10.0)
[2020-10-23 02:58] LABS: Troponin(5th) Baseline 12 ng/L (0-10)
[2020-10-23] MEDS: levETIRAcetam 500 mg Tablet 750 MG PO (02:59)
[2020-10-23 03:07] LABS: Procalcitonin 0.08 ng/mL (0-0.5)
[2020-10-23] MEDS: fentaNYL 50 mcg/mL INJ 2mL IVP (03:07)
[2020-10-23] MEDS: ondansetron 2 mg/ML SDV 2 mL 4 MG IVP (03:08)
[2020-10-23] MEDS: sodium chloride 0.9% 500 ML IV (03:09)
[2020-10-23 03:17] LABS: Albumin Level 4.3 g/dL (3.5-5.2); Chloride 101 mmol/L (98-107); Potassium 4.2 mmol/L (3.5-5.1); Sodium 140 mmol/L (136-145)
--- NOTE | 2020-10-23 03:20 | ECG_ITS ---
[facility] Test Date: 2020-10-23 Pat Name: Charmaine Pascual Department: Room: Gender: Female Forensic Science Examiner: : 1960 Requested By: Miguel Angel Dai Order Number: [id number] Zoya MD: Chun Walker M.D. Measurements Intervals [place] Rate: 69 P: 54 RI: 151 QRS: 71 QRSD: 80 T: 15 QT: 379 QTc: 408 Interpretive Statements SINUS RHYTHM WITH SINUS ARRHYTHMIA NONSPECIFIC ST & T-WAVE ABNORMALITY Compared to ECG 10/23/2020 01:28:17 T-wave abnormality now present ST (T wave) deviation no longer present Electronically Signed On 10-23-2020 15:08:16 CDT by Chun Walker M.D. [id number]
[2020-10-23 03:25] VITALS: BP 133/81; PULSE 75; RESP 17; O2SAT 98
[2020-10-23 03:30] LABS: Alanine Aminotransferase 15 U/L (0-33); Alkaline Phosphatase 151 IU/L (35-105); Anion Gap 18.2 (5-19); Aspartate Amino Transferase 21 U/L (0-32); Blood Urea Nitrogen 7 mg/dL (8-23); C Reactive Protein 29.3 mg/L (0.0-4.9); Calcium 8.7 mg/dL (8.5-10.5); Carbon Dioxide 25 mmol/L (22-29); Globulin 3.5 g/dL (1.3-4.6); Glomerular Filtration Rate 50.5 mL/min (90-130); Glucose 89 mg/dL (65-115); Osmolality Calculated 287 mOsm/kg (285-295); Total Bilirubin 0.2 mg/dL (0.15-1.2); Total Protein 7.8 g/dL (6.6-8.7)
[2020-10-23 03:53] LABS: SARS Covid-2 Antigen Positive (Negative)
--- NOTE | 2020-10-23 04:24 | W.ED.HA ---
HPI - Headache General: Chief Complaint: Headache Stated Complaint: HEADACHE Time Seen by Provider: 10/23/20 01:06 History of Present Illness: HPI Narrative: 60-year-old female here with multiple complaints including headache, sharp chest discomfort, cough, for the last couple of days. No fever. No definite sick contacts within the last week. She has been short of breath MD elicited complaint: headache Onset (ago): day(s) Onset description: gradually Location: frontal Severity: moderate Quality & Timing: aching and throbbing Exacerbating factors: none Relieving factors: nothing Context: occurred at rest Associated symptoms: Reports chest pain, cough, nausea and short of breath; Deny confusion, fever(s), neck stiffness or vomiting Treatments prior to arrival: none Review of Systems Const: Denies: fever(s) Eyes: Denies: change in vision ENMT: Reports: throat pain and odynophagia Card: Reports: chest pain Resp: Reports: dyspnea and non-productive cough GI: Reports: nausea; Denies: vomiting Neuro: Denies: confusion PFSH ED PFSH: Social History Smoking and tobacco status: former smoker Physical Exam Const: COMMON NORMALS: patient oriented x3 and alert GENERAL APPEARANCE: cooperative and frail appearing Chest: COMMONS NORMALS: normal inspection of the chest Resp: COMMON NORMALS: No use of accessory muscles and clear to auscultation bilaterally EFFORT & INSPECTION: Yes tachypneic AUSCULTATION: clear to auscultation bilaterally Cardio: COMMON NORMALS: regular rate, regular rhythm and No murmurs present (Cardio) RATE: regular rate RHYTHM: regular rhythm Neuro: COMMON NORMALS: patient oriented x3 SENSORIUM/ORIENTATION: Yes alert Course Consultations: Consultation #1: aby Time: 05:05 Vital Signs: Vital signs: Vital Signs Temperature 98.4 F 10/22/20 22:26 Pulse Rate 75 10/23/20 03:25 Respiratory Rate 17 10/23/20 03:25 Blood Pressure 133/81 10/23/20 03:25 Pulse Oximetry 98 10/23/20 03:25 MDM - Headache MDM Narrative: Medical decision making narrative: 60-year-old female with a history of lung cancer, likely metastatic brain tumor, presents with cough, shortness of breath, pleuritic chest discomfort, throat pain and headache. She is placed on oxygen, and is breathing easier currently. Her chest x-ray is negative. D-dimer is pending. CRP is elevated. She is COVID-19 positive. She is frail. She is hypoxic while asleep, but oxygen saturations are 90% and above while awake. She will be allowed home with home oxygen. Blood gas shows an appropriate PO2 on 2 L. As she is now requiring oxygen, monoclonal antibody therapy is not an option Lab Data: Labs: Lab Results 10/23/20 10/23/20 10/23/20 Range/Units 02:26 02:26 02:26 WBC 6.1 (4.0-10.0) 10^3/ uL RBC 3.70 L (4.1-5.3) 10^6/u L Hgb 10.6 L (11.5-15.3) g/dL Hct 33.8 L (37.0-47.0) % MCV 91.4 (81-99) fL MCH 28.6 (28.0-34.0) pg MCHC 31.4 (30.0-36.0) g/dL RDW 13.7 (12.1-15.1) % Plt Count 309 (130-400) 10^3/c mm MPV 8.5 (7.4-10.4) fL Neut % (Auto) 76.5 % Lymph % (Auto) 11.1 % Valley % (Auto) 8.3 % Eos % (Auto) 3.0 % Baso % (Auto) 0.8 % Neut # (Auto) 4.63 (1.8-7.7) 10^3/u L Lymph # (Auto) 0.7 L (0.8-4.8) 10^3/u L Valley # (Auto) 0.5 (0.2-0.9) 10^3/u L Eos # (Auto) 0.2 (0.0-0.8) 10^3/u L Baso # (Auto) 0.1 (0.0-0.1) 10^3/u L Nucleated RBC % (a uto) 0 % Nucleated RBCs # 0.0 /100WBC Specimen Type Sample Site ABG pH (7.35-7.45) ABG pCO2 (35-45) mmHg ABG pO2 (80.0-100.0) mmH g ABG HCO3 (22-26) mmol/L ABG Base Excess (-2.0-2.0) mmol/ L Onel Test Hematocrit (37-47) % O2 Delivery Device O2 Liters/Min % Line Service Person ID Sodium 140 (136-145) mmol/L Potassium 4.2 (3.5-5.1) mmol/L Chloride 101 (98-107) mmol/L Carbon Dioxide 25 (22-29) mmol/L Anion Gap 18.2 (5-19) BUN 7 L (8-23) mg/dL Creatinine 1.1 H (0.5-0.9) mg/dL GFR Calculation 50.5 L (90-130) mL/min Glucose 89 (65-115) mg/dL Calculated Osmolal ity 287 (285-295) mOsm/k g Calcium 8.7 (8.5-10.5) mg/dL Total Bilirubin 0.2 (0.15-1.2) mg/dL AST 21 (0-32) U/L ALT 15 (0-33) U/L Alkaline Phosphata se 151 H (35-105) IU/L Troponin T Baselin e 12 H (0-10) ng/L Troponin T 120 Min [place] lions (0-10) ng/L Delta Troponin T (0-10) ABS# C-Reactive Protein 29.3 H (0.0-4.9) mg/L Total Protein 7.8 (6.6-8.7) g/dL Albumin 4.3 (3.5-5.2) g/dL Globulin 3.5 (1.3-4.6) g/dL Procalcitonin 0.08 (0-0.5) ng/mL SARS-CoV-2 Ag (Rap id) (Negative) 10/23/20 10/23/20 10/23/20 Range/Units 03:24 04:24 05:18 WBC (4.0-10.0) 10^3/ uL RBC (4.1-5.3) 10^6/u L Hgb (11.5-15.3) g/dL Hct (37.0-47.0) % MCV (81-99) fL MCH (28.0-34.0) pg MCHC (30.0-36.0) g/dL RDW (12.1-15.1) % Plt Count (130-400) 10^3/c mm MPV (7.4-10.4) fL Neut % (Auto) % Lymph % (Auto) % Valley % (Auto) % Eos % (Auto) % Baso % (Auto) % Neut # (Auto) (1.8-7.7) 10^3/u L Lymph # (Auto) (0.8-4.8) 10^3/u L Valley # (Auto) (0.2-0.9) 10^3/u L Eos # (Auto) (0.0-0.8) 10^3/u L Baso # (Auto) (0.0-0.1) 10^3/u L Nucleated RBC % (a uto) % Nucleated RBCs # /100WBC Specimen Type Arterial Sample Site Radial, right ABG pH 7.40 (7.35-7.45) ABG pCO2 44.5 (35-45) mmHg ABG pO2 87.4 (80.0-100.0) mmH g ABG HCO3 27.3 H (22-26) mmol/L ABG Base Excess 2.1 H (-2.0-2.0) mmol/ L Onel Test Pos Hematocrit 31.5 L (37-47) % O2 Delivery Device Nc O2 Liters/Min 2.0 % Line Service Person ID Harkr Sodium (136-145) mmol/L Potassium (3.5-5.1) mmol/L Chloride (98-107) mmol/L Carbon Dioxide (22-29) mmol/L Anion Gap (5-19) BUN (8-23) mg/dL Creatinine (0.5-0.9) mg/dL GFR Calculation (90-130) mL/min Glucose (65-115) mg/dL Calculated Osmolal ity (285-295) mOsm/k g Calcium (8.5-10.5) mg/dL Total Bilirubin (0.15-1.2) mg/dL AST (0-32) U/L ALT (0-33) U/L Alkaline Phosphata se (35-105) IU/L Troponin T Baselin e (0-10) ng/L Troponin T 120 Min [place] lions 12.25 H (0-10) ng/L Delta Troponin T 0.25 (0-10) ABS# C-Reactive Protein (0.0-4.9) mg/L Total Protein (6.6-8.7) g/dL Albumin (3.5-5.2) g/dL Globulin (1.3-4.6) g/dL Procalcitonin (0-0.5) ng/mL SARS-CoV-2 Ag (Rap id) Positive H (Negative) Discharge Plan Discharge Patient Disposition: Home Clinical Impression: COVID-19 Respiratory failure with hypoxia Qualifiers: Chronicity: acute Qualified Code(s): J96.01 - Acute respiratory failure with hypoxia Condition: Stable Prescriptions: New dexamethasone 6 mg tablet 6 mg PO DAILY Qty: 5 RF: 0 No Action ascorbic acid (vitamin C) [Vitamin C] 1,000 mg Tablet 1,000 mg PO DAILY@08 RF: 0 sertraline [Zoloft] 100 mg Tablet 100 mg PO DAILY@08 RF: 0 potassium chloride 10 mEq Tablet Extended Release 10 meq PO DAILY@08 RF: 0 aspirin 81 mg Tablet,Delayed Release (Dr/Ec) 81 mg PO DAILY@08 RF: 0 acetaminophen [Tylenol Extra Strength] 500 mg Tablet 500 mg PO TID PRN (Reason: Pain) RF: 0 mirtazapine 15 mg Tablet 15 mg PO BEDTIME@22 RF: 0 ergocalciferol (vitamin D2) 50,000 unit Capsule 50,000 unit PO Q7D RF: 0 vitamin B complex-folic acid [B Complex 100] 0.4 mg Tablet 1 tab PO DAILY@08 RF: 0 melatonin 10 mg Tablet 10 mg PO DAILY@22 RF: 0 Probiotic 3 billion cell Capsule 3,000 mmu cells PO DAILY@08 RF: 0 turmeric 400 mg Capsule 400 mg PO DAILY@08 RF: 0 pantoprazole 40 mg Tablet,Delayed Release (Dr/Ec) 40 mg PO DAILY@08 RF: 0 diphenhydramine HCl [Benadryl] 25 mg Capsule 25 mg PO BEDTIME@22 RF: 0 levetiracetam [Keppra] 750 mg Tablet 750 mg PO BID@08,20 RF: 0 Carafate 1 gram tablet 1 g PO .q6h prn 56 Days Qty: 180 RF: 0 promethazine 25 mg tablet 25 mg PO Q6H PRN (Reason: nausea and vomiting) Qty: 20 RF: 0 Discharge Orders: Discharge ED (Routine); Ordered 10/23/20 Ordered By: Miguel Angel Jimenez Referrals: Juan A Garvin DO [Primary Care Provider] - 4-7 days Discharge Diet: Usual diet Discharge Activity: Limit activity as instructed Patient Instructions: Acute Bronchitis (ED) Activity Restrictions/Additional Instructions: Return for worsening mental status, worsening shortness of breath despite oxygen, vomiting liquids or medications, fever not controlled, any other concerning symptoms. Medication as directed. You should continue to quarantine at least the next 7 days. Coding Level of Care Code ED Residential Mental Health Worker for Chg Fwd Exam Expanded Problem Focused
[2020-10-23 05:01] LABS: Troponin 5 2HR 12.25 ng/L (0-10); Troponin 5 2HR Delta 0.25 ABS# (0-10)
[2020-10-23 05:28] LABS: ABG PCO2 44.5 mmHg (35-45); Arterial Blood Gas Hematocrit 31.5 % (37-47); Base Excess ABG 2.1 mmol/L (-2.0-2.0); Blood Gas Allen Test Pos; Blood Gas Operator Identificat HARKR; Blood Gas Sample Site Radial, right; Blood Gas Sample Type Arterial; HCO3 ABG 27.3 mmol/L (22-26); Oxygen Device NC; PO2 ABG 87.4 mmHg (80.0-100.0)
[2020-10-23] MEDS: dexamethasone 4 mg/mL INJ 6 MG IVP (05:48)
--- NOTE | 2020-10-23 08:16 | PC.NURSE ---
home contacted to bring home O2.
[2020-10-23 08:20] VITALS: BP 103/61; PULSE 60; RESP 16; O2SAT 90
[2020-10-23 09:49] VITALS: PULSE 67; RESP 17; O2SAT 96
== END 2020-10-23 09:50 | disposition home or self-care (01) ==
PROVIDERS: Emergency Provider Emergency Medicine; PCP Family Medicine
DX: U07.1 COVID-19 (principal); J96.01 Acute respiratory failure with hypoxia; Z79.82 Long term (current) use of aspirin; Z87.891 Personal history of nicotine dependence
CPT/HCPCS: 36600; 70450; 71045; 80053; 82803; 84145; 84484; 85025; 86140; 87426; 93005; 96361; 96374; 96375; 99284; J1100; J2405; J3010; J7040

== ENCOUNTER 2020-10-30 14:52 | Emergency (ER) | payer MEDICAID, SELFPAY ==
[2020-10-30 14:57] VITALS: BP 114/67; PULSE 75; RESP 20; TEMP 37.3; O2SAT 95; BMI 24.0
--- NOTE | 2020-10-30 15:28 | ECG_ITS ---
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 Measurements Intervals [place] Rate: 74 P: 48 RI: 132 QRS: 74 QRSD: 86 T: 53 QT: 349 QTc: 389 Interpretive Statements SINUS RHYTHM Compared to ECG 10/23/2020 04:12:26 Sinus arrhythmia no longer present T-wave abnormality no longer present Electronically Signed On 10-31-2020 9:45:03 CDT by Chun Walker M.D. [id number]
--- NOTE | 2020-10-30 15:28 | XRR_ITS ---
PROCEDURE INFORMATION: Exam: XR Chest Exam date and time: 10/30/2020 3:28 PM Age: 60 years old Clinical indication: Cough and dyspnea; Prior surgery; Surgery type: Port; Patient HX: Chest pains PT has lung CA; Additional info: Dyspnea/cough TECHNIQUE: Imaging protocol: XR of the chest. Views: 1 view. COMPARISON: CR (CHEST, ) 10/23/2020 2:03 AM FINDINGS: Tubes, catheters and devices: There is a left IJ port with tip in the superior vena cava. Lungs: Unchanged right pleural thickening and volume loss right lung compatible with probable partial right pneumonectomy. Unchanged hyperinflation and mild fibrosis. No new vascular congestion or airspace consolidation. Pleural spaces: See Lungs finding. No pleural effusion or pneumothorax. Heart/Mediastinum: Multiple postoperative clips are noted in the right paratracheal region and right hilum extending adjacent to the right medial diaphragm. Bones/joints: No acute abnormality. XR/XR chest 1V portable [id number] IMPRESSION: Unchanged exam with postoperative changes and chronic findings as above. No acute abnormality.
--- NOTE | 2020-10-30 15:59 | CTR_ITS ---
PROCEDURE INFORMATION: Exam: CTA Chest With Contrast Exam date and time: 10/30/2020 3:59 PM Age: 60 years old Clinical indication: Pain; Dyspnea; On breathing; Additional info: Sudden onset chest pain and dyspnea/covid 19 TECHNIQUE: Imaging protocol: Computed tomographic angiography of the chest with contrast. 3D rendering (Not supervised by radiologist): MIP and/or 3D reconstructed images were created by the technologist. Radiation optimization: All CT scans at this facility use at least one of these dose optimization techniques: automated exposure control; mA and/or kV adjustment per patient size (includes targeted exams where dose is matched to clinical indication); or iterative reconstruction. Contrast material: VISIPAQUE 320; Contrast volume: 62 ml; Contrast route: INTRAVENOUS (IV); COMPARISON: CT angio chest w abd pel w con 08/30/2020 9:34 AM RADIATION DOSE METRICS: Total DLP (mGy-cm): 474.02 FINDINGS: Pulmonary arteries: There is no evidence of filling defects within the pulmonary arterial circulation to suggest pulmonary embolism. Aorta: There is no thoracic aortic aneurysm or dissection. Lungs: There is bronchial wall thickening and interstitial infiltrate involving portions of the anteromedial and posterior basal segments of the left lower lobe and also some consolidation in the posterior basal segment in keeping with bronchitis and bronchopneumonia. There are moderate changes of centrilobular emphysema throughout both lungs. Postsurgical changes of right upper pneumonectomy are again identified not significantly changed. There are some calcified granulomas in the upper lobes on both sides in keeping with old granulomatous disease. Some minimal patchy infiltrate is also seen in the posterior lingula which may represent some additional pneumonitis. There is some bronchial wall thickening in right infrahilar bronchi and some mild mucous plugging at the right lung base in keeping with some bronchitis. Pleural spaces: There is persistent loculated pleural thickening or fluid at the right lung base not changed. Heart: Unremarkable. No cardiomegaly. No pericardial effusion. Lymph nodes: There are calcified hilar and mediastinal lymph nodes in keeping with old granulomatous disease. There are mildly prominent paratracheal and AP window lymph nodes slightly more prominent in the AP window region than on the prior examination. This may represent reactive change. Follow-up suggested. Bones/joints: Unremarkable. No acute fracture. Soft tissues: Unremarkable. CT/CT angio chest PE protcl [id number] IMPRESSION: 1. Findings of bronchitis 2. Findings worrisome for bronchopneumonia in the left lung. 3. No evidence of pulmonary embolism. 4. Question of slight increase in mediastinal adenopathy, additional follow-up suggested 5. Old granulomatous disease 6. Stable postsurgical changes of partial right pneumonectomy. Radiation Dose CTDIVOL = (mGy): DLP = 474.02 (mGy-cm)
[2020-10-30 16:15] VITALS: BP 114/72; PULSE 78; RESP 18; O2SAT 98
--- NOTE | 2020-10-30 16:44 | ED_ITS ---
HPI - Chest Pain General: Chief Complaint: Chest Pain Stated Complaint: HEADACHE, SHORTNESS OF BREATH Time Seen by Provider: 10/30/20 15:27 History of Present Illness: HPI narrative: 60-year-old female who was diagnosed with Covid approximately 8 days ago. She had symptoms for 1 day prior from being tested. Today she had sudden onset of chest pain and increasing shortness of breath. She is currently on oxygen due to her Covid. She has not had any fever not any productive cough. MD complaint: chest pain Onset (ago): hour(s) Timing of current episode: constant Onset: during rest Pain location: left chest Pain radiation: none Severity: moderate Quality: sharp Relieving factors: nothing Exacerbating factors: nothing Associated symptoms: Reports dyspnea; Deny abdominal pain, diaphoresis, fever(s), leg edema, nausea, palpitations, sense of impending doom, syncope or vomiting Treatment prior to arrival: none Review of Systems Const: Denies: fever(s) or diaphoresis ENMT: Denies: throat pain, ear or mastoid pain, nasal discharge or nasal congestion Card: Denies: palpitations or syncope Resp: Reports: dyspnea GI: Denies: abdominal pain, nausea or vomiting : Denies: flank pain, difficulty voiding, dysuria, urinary frequency or urinary urgency Skin/Breast: Denies: rash or pruritus PFSH ED PFSH: Social History Smoking and tobacco status: former smoker Physical Exam Const: COMMON NORMALS: no acute distress GENERAL APPEARANCE: cooperative and comfortable ORIENTATION/CONSCIOUSNESS: Yes awake, Yes oriented to person, Yes oriented to place and Yes oriented to time HENMT: COMMON NORMALS: normocephalic, atraumatic, hearing grossly normal bilaterally and external ears normal HEAD & SCALP: normocephalic and a traumatic EXTERNAL EAR: Yes external ears normal Neck/C-Spine: COMMON NORMALS: no JVD Resp: COMMON NORMALS: normal respiratory effort, No retractions, No use of accessory muscles and clear to auscultation bilaterally AUSCULTATION: clear to auscultation bilaterally Cardio: COMMON NORMALS: no JVD, regular rate, regular rhythm and No murmurs present (Cardio) RATE: regular rate RHYTHM: regular rhythm GI: COMMON NORMALS: Soft to palpation and No hepatosplenomegaly present AUSCULTATION: Yes normoactive bowel sounds PALPATION: Yes Soft to palpation, No Tenderness to palpation present (GI), No Guarding due to palpation present (GI) and Yes No hepatosplenomegaly present Extremity: COMMON NORMALS: normal to inspection, capillary refill normal, no clubbing, cyanosis or edema, no calf tenderness and no pedal edema Neuro: SENSORIUM/ORIENTATION: Yes oriented to person, Yes oriented to place and Yes oriented to time Skin: COMMON NORMALS: no rashes or lesions noted GENERAL SKIN EXAM: no rashes or lesions noted Course Vital Signs: Vital signs: Vital Signs Temperature 99.1 F 10/30/20 14:57 Pulse Rate 88 10/30/20 18:36 Respiratory Rate 20 H 10/30/20 18:36 Blood Pressure 140/72 10/30/20 18:36 Pulse Oximetry 95 10/30/20 18:36 MDM - Chest Pain MDM Narrative: Medical decision making narrative: Symptoms stable. Vital signs good will discharge home supportive cares follow-up as needed return if has problems. Lab Data: Labs: Lab Results 10/30/20 10/30/20 Range/Units 16:10 16:10 WBC 9.5 (4.0-10.0) 10^3/ uL RBC 3.95 L (4.1-5.3) 10^6/u L Hgb 11.2 L (11.5-15.3) g/dL Hct 36.5 L (37.0-47.0) % MCV 92.4 (81-99) fL MCH 28.4 (28.0-34.0) pg MCHC 30.7 (30.0-36.0) g/dL RDW 14.2 (12.1-15.1) % Plt Count 331 (130-400) 10^3/c mm MPV 9.0 (7.4-10.4) fL Neut % (Auto) 85.4 % Lymph % (Auto) 10.6 % [place] % (Auto) 3.2 % Eos % (Auto) 0.2 % Baso % (Auto) 0.0 % Neut # (Auto) 8.10 H (1.8-7.7) 10^3/u L Lymph # (Auto) 1.0 (0.8-4.8) 10^3/u L [place] # (Auto) 0.3 (0.2-0.9) 10^3/u L Eos # (Auto) 0.0 (0.0-0.8) 10^3/u L Baso # (Auto) 0.0 (0.0-0.1) 10^3/u L Nucleated RBC % (a uto) 0 % Nucleated RBCs # 0.0 /100WBC Sodium 139 (136-145) mmol/L Potassium 3.9 (3.5-5.1) mmol/L Chloride 101 (98-107) mmol/L Carbon Dioxide 28 (22-29) mmol/L Anion Gap 13.9 (5-19) BUN 19 (8-23) mg/dL Creatinine 0.9 (0.5-0.9) mg/dL GFR Calculation 63.7 L (90-130) mL/min Glucose 86 (65-115) mg/dL Calculated Osmolal ity 290 (285-295) mOsm/k g Calcium 9.2 (8.5-10.5) mg/dL Total Bilirubin 0.2 (0.15-1.2) mg/dL AST 21 (0-32) U/L ALT 35 H (0-33) U/L Alkaline Phosphata se 129 H (35-105) IU/L Creatine Kinase 13 L (26-192) U/L Total Protein 7.2 (6.6-8.7) g/dL Albumin 3.8 (3.5-5.2) g/dL Globulin 3.4 (1.3-4.6) g/dL Discharge Plan Discharge Patient Disposition: Home Clinical Impression: COVID-19 Condition: Stable Prescriptions: No Action ascorbic acid (vitamin C) [Vitamin C] 1,000 mg Tablet 1,000 mg PO DAILY@08 RF: 0 sertraline [Zoloft] 100 mg Tablet 100 mg PO DAILY@08 RF: 0 potassium chloride 10 mEq Tablet Extended Release 10 meq PO DAILY@08 RF: 0 aspirin 81 mg Tablet,Delayed Release (Dr/Ec) 81 mg PO DAILY@08 RF: 0 acetaminophen [Tylenol Extra Strength] 500 mg Tablet 500 mg PO TID PRN (Reason: Pain) RF: 0 mirtazapine 15 mg Tablet 15 mg PO BEDTIME@22 RF: 0 ergocalciferol (vitamin D2) 50,000 unit Capsule 50,000 unit PO Q7D RF: 0 vitamin B complex-folic acid [B Complex 100] 0.4 mg Tablet 1 tab PO DAILY@08 RF: 0 melatonin 10 mg Tablet 10 mg PO DAILY@22 RF: 0 Probiotic 3 billion cell Capsule 3,000 mmu cells PO DAILY@08 RF: 0 turmeric 400 mg Capsule 400 mg PO DAILY@08 RF: 0 pantoprazole 40 mg Tablet,Delayed Release (Dr/Ec) 40 mg PO DAILY@08 RF: 0 diphenhydramine HCl [Benadryl] 25 mg Capsule 25 mg PO BEDTIME@22 RF: 0 levetiracetam [Keppra] 750 mg Tablet 750 mg PO BID@08,20 RF: 0 promethazine 25 mg tablet 25 mg PO Q6H PRN (Reason: nausea and vomiting) Qty: 20 RF: 0 dexamethasone 6 mg tablet 6 mg PO DAILY Qty: 5 RF: 0 Discharge Orders: Discharge ED (Routine); Ordered 10/30/20 Ordered By: Jacques Mott Referrals: Juan A Garvin DO [Primary Care Provider] - Discharge Diet: Usual diet Discharge Activity: Resume usual activity Patient Instructions: Opioid Safety Coding Level of Care Code ED Patient Accounts Coordinator for Lorena Fwd Exam Comprehensive
[2020-10-30 16:58] LABS: Alanine Aminotransferase 35 U/L (0-33); Albumin Level 3.8 g/dL (3.5-5.2); Alkaline Phosphatase 129 IU/L (35-105); Anion Gap 13.9 (5-19); Aspartate Amino Transferase 21 U/L (0-32); Blood Urea Nitrogen 19 mg/dL (8-23); Calcium 9.2 mg/dL (8.5-10.5); Carbon Dioxide 28 mmol/L (22-29); Chloride 101 mmol/L (98-107); Creatine Phosphokinase 13 U/L (26-192); Globulin 3.4 g/dL (1.3-4.6); Glomerular Filtration Rate 63.7 mL/min (90-130); Glucose 86 mg/dL (65-115); Osmolality Calculated 290 mOsm/kg (285-295); Potassium 3.9 mmol/L (3.5-5.1); Sodium 139 mmol/L (136-145); Total Bilirubin 0.2 mg/dL (0.15-1.2); Total Protein 7.2 g/dL (6.6-8.7)
[2020-10-30 17:32] LABS: Eosinophils % 0.2 %; Hematocrit 36.5 % (37.0-47.0); Hemoglobin 11.2 g/dL (11.5-15.3); Lymphocytes % 10.6 %; Mean Corpuscular HGB Conc 30.7 g/dL (30.0-36.0); Mean Corpuscular Hemoglobin 28.4 pg (28.0-34.0); Mean Corpuscular Volume 92.4 fL (81-99); Monocytes # 0.3 10^3/uL (0.2-0.9); Monocytes % 3.2 %; Neutrophils % 85.4 %; Nucleated Red Blood Cells % 0 %; Platelet Count 331 10^3/cmm (130-400); Red Blood Count 3.95 10^6/uL (4.1-5.3); Red Cell Distribution Width 14.2 % (12.1-15.1); White Blood Count 9.5 10^3/uL (4.0-10.0)
[2020-10-30 18:00] VITALS: BP 140/72; PULSE 88; RESP 20; O2SAT 95
[2020-10-30 18:36] VITALS: BP 140/72; PULSE 88; RESP 20; O2SAT 95
== END 2020-10-30 18:36 | disposition home or self-care (01) ==
PROVIDERS: Emergency Provider Family Medicine; PCP Family Medicine
DX: U07.1 COVID-19 (principal); Z79.82 Long term (current) use of aspirin; Z87.891 Personal history of nicotine dependence
CPT/HCPCS: 71045; 71275; 80053; 82550; 85025; 93005; 99283; Q9967

== ENCOUNTER 2024-10-11 11:48 | Emergency (ER) | payer MEDICAID, SELFPAY ==
[2024-10-11 11:48] VITALS: BP 108/73; PULSE 92; RESP 16; TEMP 36.4; O2SAT 96
--- NOTE | 2024-10-11 11:49 | ECG_ITS ---
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
--- NOTE | 2024-10-11 11:51 | XRR_ITS ---
PROCEDURE INFORMATION: Exam: XR Chest Exam date and time: 10/11/2024 11:56 AM Age: 64 years old Clinical indication: Pain; Chest pressure; Prior surgery; Surgery date: 6+ months; Surgery type: Port placement; SOB; Weakness; Fever TECHNIQUE: Imaging protocol: Radiologic exam of the chest. Views: 1 view. COMPARISON: CT angio chest PE protcl [id number] 10/30/2020 5:20 PM FINDINGS: Tubes, catheters and devices: Left-sided MediPort. Lungs: Hazy opacities interstitial opacities at the lung bases may represent areas of atelectasis or scar. Pleural spaces: Unremarkable. No pleural effusion. No pneumothorax. Heart/Mediastinum: Unremarkable. No cardiomegaly. Bones/joints: Unremarkable. XR/XR chest 1V portable [id number] IMPRESSION: As above.
--- NOTE | 2024-10-11 11:55 | CTR_ITS ---
PROCEDURE INFORMATION: Exam: CT Head Without Contrast Exam date and time: 10/11/2024 12:15 PM Age: 64 years old Clinical indication: Other: Weakness TECHNIQUE: Imaging protocol: Computed tomography of the head without contrast. Radiation optimization: All CT scans at this facility use at least one of these dose optimization techniques: automated exposure control; mA and/or kV adjustment per patient size (includes targeted exams where dose is matched to clinical indication); or iterative reconstruction. COMPARISON: CT head wo con* [id number] 10/23/2020 2:28 AM RADIATION DOSE METRICS: Total DLP (mGy-cm): 934.18 FINDINGS: Brain: Stable calcification in the right frontal lobe may represent a vascular lesion such as a cavernoma. No mass effect or midline shift. No acute intracranial hemorrhage. There is some sequela in the interval of hypoattenuation of the white matter reflecting chronic microvascular angiopathy. Cerebral ventricles: No ventriculomegaly. Paranasal sinuses: Visualized sinuses are unremarkable. No fluid levels. Mastoid air cells: Visualized mastoid air cells are well aerated. Bones: Unremarkable. No acute fracture. Soft tissues: Unremarkable. CT/CT head wo con* [id number] IMPRESSION: No acute intracranial abnormality. Senescent and chronic changes.
--- NOTE | 2024-10-11 11:58 | W.ED.WEAKNES ---
HPI - Weakness General: Chief complaint: Weakness Stated complaint: bradycardia Source: patient and EMS Mode of arrival: EMS Limitations: no limitations History of Present Illness: 64-year-old female is brought in by EMS she has been complaining some chest pain over the last day also decreased mental status per EMS she is minimally responsive did respond to painful stimuli she is bradycardic they did give her atropine Zofran heart rates improved she is normotensive here she denies any pain currently she is able to tell me her name where she is from she is confused on the date. Associated symptoms: Reports chest pain and confusion; Denies chills, dysuria, fever(s), headache(s), nausea or vomiting Review of Systems Const: Denies: fever(s) or chills Eyes: Denies: eye discomfort ENMT: Denies: throat pain or dental pain Card: Reports: chest pain Resp: Denies: dyspnea GI: Denies: abdominal pain, nausea, vomiting or diarrhea : Denies: dysuria Musc: Denies: neck pain or back pain Skin/Breast: Denies: rash Neuro: Reports: confusion; Denies: headache(s) PFSH ED PFSH: Social History Smoking and tobacco/nicotine status: former use of tobacco/nicotine Physical Exam Const: COMMON NORMALS: negative for patient oriented x3 HENMT: COMMON NORMALS: normocephalic and atraumatic HEAD & SCALP: normocephalic and atraumatic Eye: COMMON NORMALS: conjunctivae normal CONJUNCTIVA: Yes conjunctivae normal Neck/C-Spine: COMMON NORMALS: full ROM and supple Chest: COMMONS NORMALS: normal inspection of the chest and normal palpation of entire chest wall Resp: COMMON NORMALS: normal respiratory effort, No retractions, No use of accessory muscles and clear to auscultation bilaterally AUSCULTATION: clear to auscultation bilaterally Cardio: COMMON NORMALS: regular rate, regular rhythm and No murmurs present (Cardio) RATE: regular rate RHYTHM: regular rhythm GI: COMMON NORMALS: Normal to inspection, nondistended, normoactive bowel sounds present, Soft to palpation, non-tender and no masses PALPATION: Yes Soft to palpation Extremity: COMMON NORMALS: normal to inspection and full ROM Neuro: COMMON NORMALS: moves all extremities and no focal motor deficits; negative for patient oriented x3 Psych: COMMON NORMALS: mental status grossly normal, Normal thought process present and cooperative THOUGHT PROCESS: Normal thought process present Skin: COMMON NORMALS: no rashes or lesions noted and no wounds GENERAL SKIN EXAM: no rashes or lesions noted Course Vital Signs: Vital signs: Vital Signs Temperature 97.6 F 10/11/24 11:48 Pulse Rate 69 10/11/24 13:33 Respiratory Rate 18 10/11/24 13:33 Blood Pressure 106/67 10/11/24 13:33 Pulse Oximetry 97 10/11/24 13:33 Oxygen Delivery Me thod Room Air 10/11/24 11:48 MDM - Weakness Medical Decision Making Patient presents here after syncopal event after talking to her daughter and patient further she became diaphoretic was bradycardic likely a vasovagal syncopal event. Patient states this has happened in the past she is now awake alert she feels much improved blood work imaging is normal here she is requesting to go home I feel she is stable for discharge she is to follow-up with PCP and return if worsening she understands agrees to plan. Medical Records I reviewed the patient's medical records. Lab Data I reviewed the patient's lab results. 10/11/24 11:30 10/11/24 11:30 Radiology Impressions Chest X-Ray 10/11/24 11:51 IMPRESSION: As above. Head CT 10/11/24 11:55 IMPRESSION: No acute intracranial abnormality. Senescent and chronic changes. Laboratory Results WBC 5.27 10^3/uL (3.29-11.43) 10/11/24 11:30 RBC 3.85 10^6/uL (3.85-5.65) 10/11/24 11:30 Hgb 9.30 g/dL (11.27-16.99) L 10/11/24 11:30 Hct 32.3 % (36-47) L 10/11/24 11:30 MCV 83.9 fl (85-98) L 10/11/24 11:30 MCH 24.2 pg (27-33) L 10/11/24 11:30 MCHC 28.8 g/dL (30-55) L 10/11/24 11:30 RDW 16.0 % (12.1-15.1) H 10/11/24 11:30 Plt Count 476 10^3/cmm (157-399) H 10/11/24 11:30 MPV 8.4 fL (7.4-10.4) 10/11/24 11:30 Neut % (Auto) 56.4 % 10/11/24 11:30 Lymph % (Auto) 33.4 % 10/11/24 11:30 [place] % (Auto) 7.0 % 10/11/24 11:30 Eos % (Auto) 1.5 % 10/11/24 11:30 Baso % (Auto) 1.3 % 10/11/24 11:30 Neut # (Auto) 2.97 10^3/uL (1.8-7.7) 10/11/24 11:30 Lymph # (Auto) 1.8 10^3/uL (0.8-4.8) 10/11/24 11:30 [place] # (Auto) 0.4 10^3/uL (0.2-0.9) 10/11/24 11:30 Eos # (Auto) 0.1 10^3/uL (0.0-0.8) 10/11/24 11:30 Baso # (Auto) 0.1 10^3/uL (0.0-0.1) 10/11/24 11:30 Nucleated RBC % (auto) 0 % 10/11/24 11:30 Nucleated RBCs # 0.0 /100WBC 10/11/24 11:30 PT 13.50 SECONDS (12.1-14.9) 10/11/24 11:30 INR 0.96 (0.8-1.2) 10/11/24 11:30 Sodium 141 mmol/L (136-145) 10/11/24 11:30 Potassium 4.3 mmol/L (3.5-5.1) 10/11/24 11:30 Chloride 103 mmol/L (98-107) 10/11/24 11:30 Carbon Dioxide 27 mmol/L (22-29) 10/11/24 11:30 Anion Gap 15.3 (5-19) 10/11/24 11:30 BUN 10 mg/dL (8-23) 10/11/24 11:30 Creatinine 0.9 mg/dL (0.5-0.9) 10/11/24 11:30 GFR Calculation 62.8 mL/min (90-130) L 10/11/24 11:30 Glucose 108 mg/dL (65-115) 10/11/24 11:30 Calculated Osmolality 292 mOsm/kg (285-295) 10/11/24 11:30 Calcium 9.6 mg/dL (8.5-10.5) 10/11/24 11:30 Total Bilirubin 0.2 mg/dL (0.15-1.2) 10/11/24 11:30 AST 11 U/L (0-32) 10/11/24 11:30 ALT 6 U/L (0-33) 10/11/24 11:30 Alkaline Phosphatase 92 U/L (35-105) 10/11/24 11:30 Troponin T Baseline 8 ng/L (0-10) 10/11/24 11:30 Troponin T 120 Minute < 6.0 ng/L (0-10) 10/11/24 13:35 Delta Troponin T -[id number] ABS# (0-10) L 10/11/24 13:35 Total Protein 7.0 g/dL (6.6-8.7) 10/11/24 11:30 Albumin 4.1 g/dL (3.5-5.2) 10/11/24 11:30 Globulin 2.9 g/dL (1.3-4.6) 10/11/24 11:30 Lipase 24 U/L (13-60) 10/11/24 11:30 TSH 1.63 uIU/mL (0.27-4.20) 10/11/24 11:30 Urine Color Yellow (Yellow) 10/11/24 12:54 Urine Appearance Clear (CLEAR) 10/11/24 12:54 Urine pH 6.5 (5-7) 10/11/24 12:54 Ur Specific [place] 1.007 (1.005-1.030) 10/11/24 12:54 Urine Protein Negative (Negative) 10/11/24 12:54 Urine Glucose (UA) Negative (Normal) 10/11/24 12:54 Urine Ketones Negative (Negative) 10/11/24 12:54 Urine Blood Negative (Negative) 10/11/24 12:54 Urine Nitrate Negative (Negative) 10/11/24 12:54 Urine Bilirubin Negative (Negative) 10/11/24 12:54 Urine Urobilinogen 0.2 mg/dL (Negative) 10/11/24 12:54 Ur Leukocyte Esterase Trace (Negative) A 10/11/24 12:54 Urine RBC 0-2 /hpf (0-2) 10/11/24 12:54 Urine WBC 0-5 /hpf (0-5) 10/11/24 12:54 Ur Squamous Epith Cells 0-5 /hpf (0-5) 10/11/24 12:54 Amorphous Sediment Not Reportable 10/11/24 12:54 Urine Bacteria None seen /hpf (NONE) 10/11/24 12:54 Hyaline Casts 0.81 /lpf 10/11/24 12:54 All radiology interpretation(s) finalized by discharge EKG Data EKG 1: I personally reviewed and interpreted this EKG as follows: EKG interpretation date: 10/11/24 EKG interpretation time: 11:49 Interpretation: nsr hr [address] elevation qrs 82 qtc 383 EKG 2: I personally reviewed and interpreted this EKG as follows: EKG interpretation date: 10/11/24 EKG interpretation time: 13:58 Interpretation: nsr hr [address] elevation qrs 88 qtc 419 Discharge Plan Discharge Patient Disposition: Home Clinical Impression: Syncope Condition: Stable Prescriptions: No Action ascorbic acid (vitamin C) [Vitamin C] 1,000 mg Tablet 1,000 mg PO DAILY@08 PRN (Reason: cold and flu season) aspirin 81 mg Tablet,Delayed Release (Dr/Ec) 81 mg PO DAILY@08 acetaminophen [Tylenol Extra Strength] 500 mg Tablet 500 mg PO TID PRN (Reason: Pain) melatonin 10 mg Tablet 10 mg PO DAILY@22 Probiotic 3 billion cell Capsule 3,000 mmu cells PO DAILY@08 turmeric 400 mg Capsule 400 mg PO DAILY@08 cetirizine [Zyrtec] 10 mg Tablet 10 mg PO DAILY PRN (Reason: allergies) levetiracetam 500 mg tablet 500 mg PO BID mirtazapine 15 mg tablet,disintegrating 15 mg PO BEDTIME sertraline 50 mg tablet 50 mg PO DAILY vitamin B complex-folic acid 2,000 mcg Capsule 1 cap PO DAILY Discharge Orders: Discharge ED (Routine); Ordered 10/11/24 Ordered By: Santos Sargent Referrals: Ball,Juan A Augustine, DO [Primary Care Provider, Family Practice] Discharge Diet: Advance as tolerated Discharge Activity: Resume usual activity Patient Instructions: Syncope (ED) Print Language: Moroccan Coding Level of Care Code ED Cell Assembly Pinner for Chg Fwd Related Data Home Medications ?Medication ?Instructions ?Recorded ?Confirmed acetaminophen 500 mg tablet 500 mg PO TID PRN Pain 05/22/19 10/11/24 (Tylenol Extra Strength) ascorbic acid (vitamin C) 1,000 mg 1,000 mg PO DAILY@08 PRN cold and 05/22/19 10/11/24 tablet (Vitamin C) flu season aspirin 81 mg tablet,delayed 81 mg PO DAILY@05/22/19 10/11/24 release lactobacillus combination no.4 3 3,000 mmu cells PO DAILY@05/22/19 10/11/24 billion cell capsule (Probiotic) melatonin 10 mg tablet 10 mg PO DAILY@05/22/19 10/11/24 turmeric 400 mg capsule 400 mg PO DAILY@05/22/19 10/11/24 cetirizine 10 mg tablet (Zyrtec) 10 mg PO DAILY PRN allergies 10/11/24 10/11/24 levetiracetam 500 mg tablet 500 mg PO BID 10/11/24 10/11/24 mirtazapine 15 mg disintegrating 15 mg PO BEDTIME 10/11/24 10/11/24 tablet sertraline 50 mg tablet 50 mg PO DAILY 10/11/24 10/11/24 vitamin B complex-folic acid 2,000 1 cap PO DAILY 10/11/24 10/11/24 mcg capsule Allergies Allergy/AdvReac Type Severity Reaction Status Date / Time codeine Allergy Unknown Verified 10/30/20 15:11 lorazepam Allergy ADR-Irritab Verified 10/30/20 15:11 renita
[2024-10-11] MEDS: sodium chloride 0.9% 1,000 ML 999 ML IV (12:00)
[2024-10-11 12:30] LABS: Basophils # 0.1 10^3/uL (0.0-0.1); Basophils % 1.3 %; Eosinophils # 0.1 10^3/uL (0.0-0.8); Eosinophils % 1.5 %; Hematocrit 32.3 % (36-47); Lymphocytes # 1.8 10^3/uL (0.8-4.8); Lymphocytes % 33.4 %; Mean Corpuscular HGB Conc 28.8 g/dL (30-55); Mean Corpuscular Hemoglobin 24.2 pg (27-33); Mean Corpuscular Volume 83.9 fl (85-98); Mean Platelet Volume 8.4 fL (7.4-10.4); Monocytes # 0.4 10^3/uL (0.2-0.9); Neutrophils # 2.97 10^3/uL (1.8-7.7); Neutrophils % 56.4 %; Nucleated Red Blood Cells % 0 %; Platelet Count 476 10^3/cmm (157-399); Red Blood Count 3.85 10^6/uL (3.85-5.65); White Blood Count 5.27 10^3/uL (3.29-11.43)
[2024-10-11 12:44] VITALS: BP 108/74; PULSE 74; RESP 21; O2SAT 95
[2024-10-11 12:51] LABS: INR 0.96 (0.8-1.2)
[2024-10-11 13:00] LABS: Troponin(5th) Baseline 8 ng/L (0-10)
[2024-10-11 13:09] LABS: Alanine Aminotransferase 6 U/L (0-33); Albumin Level 4.1 g/dL (3.5-5.2); Alkaline Phosphatase 92 U/L (35-105); Anion Gap 15.3 (5-19); Aspartate Amino Transferase 11 U/L (0-32); Blood Urea Nitrogen 10 mg/dL (8-23); Calcium 9.6 mg/dL (8.5-10.5); Carbon Dioxide 27 mmol/L (22-29); Chloride 103 mmol/L (98-107); Creatinine Clr Calc Pharmacy 51.9228; Globulin 2.9 g/dL (1.3-4.6); Glomerular Filtration Rate 62.8 mL/min (90-130); Glucose 108 mg/dL (65-115); Lipase 24 U/L (13-60); Osmolality Calculated 292 mOsm/kg (285-295); Potassium 4.3 mmol/L (3.5-5.1); Sodium 141 mmol/L (136-145); Thyroid Stimulating Hormone 1.63 uIU/mL (0.27-4.20); Total Bilirubin 0.2 mg/dL (0.15-1.2)
[2024-10-11 13:13] LABS: Bilirubin Urine Negative (Negative); Blood Urine Negative (Negative); Glucose Urine UA Negative (Normal); Ketones Urine Negative (Negative); Leukocyte Esterase Urine Trace (Negative); Nitrate Urine Negative (Negative); Protein Urine Negative (Negative); Specific Gravity, Urine 1.007 (1.005-1.030); Urine Appearance Clear (CLEAR); Urine Color Yellow (Yellow); Urobilinogen Urine 0.2 mg/dL (Negative); pH Urine 6.5 (5-7)
[2024-10-11 13:19] LABS: Add Urine Microscopic? YES; Bacteria Urine None Seen /hpf; Hyaline Casts Urine 0.81 /lpf; RBC Urine 0-2 /hpf (0-2); Squamous Epithelial Cell Urine 0-5 /hpf (0-5); WBC Urine 0-5 /hpf (0-5)
[2024-10-11 13:33] VITALS: BP 106/67; PULSE 69; RESP 18; O2SAT 97
--- NOTE | 2024-10-11 13:58 | ECG_ITS ---
[facility]: [facility]24[facility]11 Pat Name: Charmaine Pascual Department: Room: Gender: Female Manager Combination: : 1960 Requested By: Santos Sargent Order Number: [id number] Reading MD: ALEJANDRINA SEAMAN Measurements Intervals [place] Rate: 65 P: 74 MO: 151 QRS: 78 QRSD: 88 T: 65 QT: 408 QTc: 424 Interpretive Statements SINUS RHYTHM Compared to ECG 10/11/2024 11:49:05 No significant changes Electronically Signed On 10-11-2024 23:56:57 CDT by ALEJANDRINA SEAMAN [email or web address] [id number]
--- NOTE | 2024-10-11 13:59 | PC.PHAR ---
Several years have passed since last medication update. Family member has current list on her phone. Many old rx's were removed from chart from [id number].
[2024-10-11 14:04] LABS: Troponin 5 2HR < 6.0 ng/L (0-10)
[2024-10-11 14:09] LABS: Troponin 5 2HR Delta -2.00001 ABS# (0-10)
[2024-10-11 14:18] VITALS: BP 148/72; PULSE 70; O2SAT 98
== END 2024-10-11 14:37 | disposition home or self-care (01) ==
PROVIDERS: Emergency Provider Emergency Medicine; PCP Family Medicine
DX: R55 Syncope and collapse (principal); Z79.82 Long term (current) use of aspirin; Z87.891 Personal history of nicotine dependence
CPT/HCPCS: 36415; 70450; 71045; 80053; 81001; 83690; 84443; 84484; 85025; 85610; 93005; 99285; J7030